=== PATIENT | female | born 1980 | race African-American/Black ===

== ENCOUNTER 2021-04-14 21:57 | Inpatient (IN) | payer OTHER, SELFPAY ==
[~2021-04-14] VITALS: Ht 157.5 cm; Wt 64.9 kg
[2021-04-14 22:00] VITALS: BP_SYST 144
--- NOTE | 2021-04-14 22:00 | NUR ---
Placed in room 08 . Placed on conveyor monitor, blood pressure machine and pulse oximeter. To gown for exam. Side rails up. Report given to LUIS BARFIELD
--- NOTE | 2021-04-14 22:10 | NUR ---
Assumed total care of patient. Patient AAO x4 c/o bilateral lower leg numbness, tingling, and weakness. Patient states she was standing about to take a step when she felt like her legs gave out. Patient was unable to get herself back up. Patient denies lightheadedness, nausea, blurry vision. Patient denies loss of consciousness. Patient denies any medical history. Patient placed on eap consultant, VSS, breathing even and unlabored, symmetrical chest rise and fall, no signs of acute distress noted. Will continue to monitor.
--- NOTE | 2021-04-14 22:20 | NUR ---
# 20 gauge angiocath placed to right forearm. Use of asceptic technique. Opsite placed over site. Blood return noted. Flushed with 10 cc of normal saline. No evidence of infiltration noted. Patient tolerated well.
--- NOTE | 2021-04-14 23:30 | NUR ---
ER Dr. Davis at bedside examining patient.
[2021-04-14] MEDS ORDERED: NACL 0.9% 1,000 ML IV ONE (23:45)
--- NOTE | 2021-04-15 | NUR ---
Lab at bedside drawing blood work
[2021-04-15 00:21] LABS: BASOPHILS # (AUTO) 0.1 K/uL (0.0-0.2); EOSINOPHILS # (AUTO) 0.1 K/uL (0.0-0.4); EOSINOPHILS % (AUTO) 0.9 % (0.0-4.0); HEMATOCRIT 36.7 % (36-48); HEMOGLOBIN 12.2 g/dL (12.0-16.0); LYMPHOCYTES # (AUTO) 1.8 K/uL (1.0-5.5); LYMPHOCYTES % (AUTO) 23.1 % (20.5-51.5); MEAN CORPUSCULAR HEMOGLOBIN 30 pg (27-31); MEAN CORPUSCULAR HGB CONC 33 % (32-36); MEAN CORPUSCULAR VOLUME 89 fL (79.0-98.0); MONOCYTES # (AUTO) 0.6 K/uL (0.0-1.0); MONOCYTES % (AUTO) 8.2 % (1.7-9.3); NEUTROPHILS # (AUTO) 5.2 K/uL (1.8-7.7); NEUTROPHILS % (AUTO) 66.8 % (40.0-70.0); PLATELET COUNT (AUTO) 341 K/uL (130-430); RED CELL DISTRIBUTION WIDTH 15.8 % (9.0-15.0); WHITE BLOOD COUNT (AUTO) 7.8 K/uL (4.8-10.8)
[2021-04-15 00:36] LABS: CALCIUM 7.5 mg/dL (8.4-11.0); CREATININE 0.59 mg/dL (0.55-1.30)
[2021-04-15] MEDS ORDERED: MAGNESIUM SULFATE 50 ML IV ONE (00:45)
[2021-04-15] MEDS ORDERED: KCL 40 mEq in 100 mL (PREMIX) 100 ML IV ONE (00:45)
[2021-04-15] MEDS ORDERED: POTASSIUM CHLORIDE 20 MEQ TAB.PRT.SR PO ONE ×2 (00:45→11:30)
[2021-04-15 00:54] LABS: ALBUMIN 3.6 g/dL (3.4-4.8); THYROID STIMULATING HORMONE 1.69 uIu/mL (0.36-3.74); TOTAL BILIRUBIN 0.6 mg/dL (0.0-1.0)
[2021-04-15 00:56] LABS: POTASSIUM 2.5 mmol/L (3.5-5.1)
[2021-04-15] MEDS ORDERED: KCL 20 mEq in 100 mL (PREMIX) 100 ML IV ONE ×3 (01:15→05:30)
--- NOTE | 2021-04-15 02:20 | NUR ---
Patient ambulated to restroom with assistance to obtain urine sample. Patient returned to [facility], placed on property assessment monitor. Will continue to monitor.
[2021-04-15 02:49] LABS: BILIRUBIN,URINE NEGATIVE (NEGATIVE); BLOOD, URINE NEGATIVE (NEGATIVE); CLARITY/URINE CLEAR (CLEAR); COLOR,URINE YELLOW (YELLOW); GLUCOSE,URINE NEGATIVE (NEGATIVE); KETONES,URINE 2+ (NEGATIVE); LEUKOCYTE ESTERASE ,URINE 1+ (NEGATIVE); NITRITE, URINE NEGATIVE (NEGATIVE); PROTEIN URINE NEGATIVE (NEGATIVE); UROBILINOGEN,URINE 0.2 (0.2-1.0)
[2021-04-15 03:05] LABS: BARBITURATE, URINE NEGATIVE (NEG <=200); BENZODIAZEPINE, URINE NEGATIVE (NEG <=150); CANNABINOID, URINE NEGATIVE (NEG <=50); COCAINE, URINE NEGATIVE (NEG <=150); METHAMPHETAMINES SCREEN,URINE NEGATIVE (NEG <=500); OPIATE, URINE NEGATIVE (NEG <=100); PHENCYCLIDINE SCREEN,URINE NEGATIVE (NEG <=25); UR TRICYCLIC ANTIDEPRESSANTS NEGATIVE (NEG <=300); URINE AMPHETAMINE NEGATIVE (NEG <=500); URINE METHADONE NEGATIVE (NEG <=200); URINE OXYCODONE SCREEN NEGATIVE (NEG <=100); URINE PROPOXYPHENE SCREEN NEGATIVE (NEG <=300)
[2021-04-15 04:10] LABS: BACTERIA,URINE MODERATE /HPF (None Seen); MUCUS,URINE None Seen /LPF (None Seen); RBC,URINE 0-3 /HPF (0-3)
--- NOTE | 2021-04-15 04:17 | NUR ---
Orders received to order repeat Potassium level. Lab notified.
--- NOTE | 2021-04-15 04:21 | NUR ---
Lab at bedside for blood draw.
[2021-04-15] MEDS ORDERED: NITROFURANTOIN MONOHYD/M-CRYST 100 MG CAPSULE (MacroBID) PO ONE ×2 (04:45→05:03)
[2021-04-15 04:46] LABS: CALCIUM 7.3 mg/dL (8.4-11.0); CREATININE 0.6 mg/dL (0.55-1.30); POTASSIUM 3.2 mmol/L (3.5-5.1)
--- NOTE | 2021-04-15 05:05 | NUR ---
Patient medicated per MD orders. Patient tolerated well.
[2021-04-15] MEDS ORDERED: POTASSIUM CHLORIDE 10 MEQ TAB.PRT.SR PO ONE (05:30)
--- NOTE | 2021-04-15 05:56 | NUR ---
Received admit orders from Dr. Corcoran
--- NOTE | 2021-04-15 06:00 | NUR ---
Patient will be admitted to care of Dr. Corcoran. Admitted to TELE unit. Will go to room pending. Complete and up to date summary report printed. SBAR report to be given at bedside with opportunity for questions.
--- NOTE | 2021-04-15 06:01 | NUR ---
Patient's code status is FULL CODE paperwork completed and placed in chart.
--- NOTE | 2021-04-15 06:17 | NUR ---
Patient reports feeling nauseous. Dr. Davis notified, orders received for Zofran 4mg IVP.
[2021-04-15] MEDS ORDERED: ONDANSETRON HCL 4 MG/2 ML VIAL ONE (06:19)
[2021-04-15] MEDS ORDERED: ONDANSETRON HCL 4 MG/2 ML VIAL IVP ONE (06:30)
--- NOTE | 2021-04-15 07:16 | NUR ---
Report given to LUIS Ulrich for contination of care
--- NOTE | 2021-04-15 07:30 | NUR ---
Report received from Izzy SMITH to assume care of patient
[2021-04-15] MEDS: LR 1,000 ML IV SCH ×2 (07:44→15:40)
--- NOTE | 2021-04-15 07:56 | NUR ---
Pt awake, alert and oriented x 3. Very pleasant. No c/o any kind. VSS on pvc monitor. Informed of treatment plan for morning and moving forward. Understanding verbalized. Will continue to monitor closely.
--- NOTE | 2021-04-15 08:44 | NUR ---
BMP to be drawn to re-evaluate patient; awaiting lab.
--- NOTE | 2021-04-15 09:05 | NUR ---
Dr Roth to bedside to assess patient
--- NOTE | 2021-04-15 09:35 | NUR ---
Dr Corcoran to bedside to assess patient
--- NOTE | 2021-04-15 09:48 | NUR ---
[facility]
[2021-04-15 10:01] LABS: ALBUMIN 3.6 g/dL (3.4-4.8); CALCIUM 7.3 mg/dL (8.4-11.0); CREATININE 0.64 mg/dL (0.55-1.30); POTASSIUM 3.1 mmol/L (3.5-5.1); TOTAL BILIRUBIN 0.8 mg/dL (0.0-1.0)
[2021-04-15 10:37] VITALS: BP_SYST 112
--- NOTE | 2021-04-15 10:45 | NUR ---
CARDIOLOGY CONSULT DR KYLE IS AWARE OF THE CONSULT
--- NOTE | 2021-04-15 10:46 | NUR ---
NEPHROLOGY CONSULT THAT AVE IS AWARE OF THE CONSULT FOR LOW K LEVEL.
--- NOTE | 2021-04-15 11:00 | NUR ---
ADMISSION NOTE Pt arrived via gurney to room at 1010am. Pt was assisted from gurney to bed in room by 2 person assist due to vertigo. Pt was oriented to room and nursing routines/procedures. Questions/concerns were answered at this time. Tele unit was applied at this time of admission to floor. Call light within reach.
[2021-04-15 12:00] VITALS: BP_SYST 115
[2021-04-15] MEDS: POTASSIUM CHLORIDE 20 MEQ TAB.PRT.SR PO SCH ×2 (15:40→21:57)
[2021-04-15 16:00] VITALS: BP_SYST 121
--- NOTE | 2021-04-15 18:25 | NUR ---
Note Pt was assisted to restroom at 1130am, pt was dizzy and had vertigo - with RN and FWW. On assistance back to bed, pt was provided with BSC and instructed to call when getting in and OOB to BSC, pt does not call for assistance, gets up independently to use BSC. Pt was checked on q1' and PRN all shift for needs and care. Pt's bed in low position. IV in RAC intact and patent infusing IVF's well. Pt denies any needs all shift. Tele unit attached and intact all shift. Call light within reach. Pt was seen by Dr Dyer this shift and assessment completed.
--- NOTE | 2021-04-15 19:25 | NUR ---
CHANGE OF SHIFT; endorsed by day shift for Hypokalemia. no distress. call light within reach.
[2021-04-15 20:30] VITALS: BP_SYST 149
--- NOTE | 2021-04-15 20:30 | NUR ---
NOTES: pt. sleeping when checked. IVF infusing , on security monitor and shows sinus tach HR 107. awakened, no shortness of breath or any c/o pain. denies any dizziness. still has not eaten dinner, kept tray at bedside. VS checked. SBP pretty high 169/95 and rechecked 149/89. Dr. Corcoran in the nursing stastion and made him aware. call light within reach.
[2021-04-15] MEDS ORDERED: cloNIDine HCL 0.1 MG TABLET PO PRN (21:15)
[2021-04-15] MEDS ORDERED: ACETAMINOPHEN 325 MG TABLET PO PRN (21:15)
[2021-04-16 00:15] VITALS: BP_SYST 151
--- NOTE | 2021-04-16 00:15 | NUR ---
NOTES: pt. checked, leads off. VS rechecked. IVF infusing. needs attended.
[2021-04-16] MEDS: LR 1,000 ML IV SCH ×3 (02:25→21:23)
--- NOTE | 2021-04-16 03:01 | NUR ---
NOTES: pt. sleeping when checked. IV bag changed. no complaints noted. occ. bouts of non productive cough.
--- NOTE | 2021-04-16 06:51 | NUR ---
CLOSING NOTES; pt. already awake, voided and had bm using BSC. IV site slightly swollen, high pressure alarm. will check to insert another IV site. for further care and assistance. no dizziness. call light within reach.
[2021-04-16 08:00] VITALS: BP_SYST 135
[2021-04-16 08:24] LABS: BASOPHILS # (AUTO) 0.1 K/uL (0.0-0.2); EOSINOPHILS # (AUTO) 0.3 K/uL (0.0-0.4); EOSINOPHILS % (AUTO) 3.3 % (0.0-4.0); HEMOGLOBIN 10.5 g/dL (12.0-16.0); LYMPHOCYTES # (AUTO) 3.2 K/uL (1.0-5.5); LYMPHOCYTES % (AUTO) 42.4 % (20.5-51.5); MEAN CORPUSCULAR HEMOGLOBIN 30 pg (27-31); MEAN CORPUSCULAR HGB CONC 33 % (32-36); MEAN CORPUSCULAR VOLUME 90 fL (79.0-98.0); MONOCYTES # (AUTO) 0.7 K/uL (0.0-1.0); NEUTROPHILS # (AUTO) 3.4 K/uL (1.8-7.7); NEUTROPHILS % (AUTO) 44.3 % (40.0-70.0); PLATELET COUNT (AUTO) 277 K/uL (130-430); RED BLOOD CELL COUNT(AUTO) 3.56 MIL/uL (4.2-6.2); WHITE BLOOD COUNT (AUTO) 7.6 K/uL (4.8-10.8)
[2021-04-16 08:40] LABS: CALCIUM 7.2 mg/dL (8.4-11.0); CREATININE 0.53 mg/dL (0.55-1.30); POTASSIUM 3.5 mmol/L (3.5-5.1); TOTAL BILIRUBIN 0.5 mg/dL (0.0-1.0)
[2021-04-16] MEDS: POTASSIUM CHLORIDE 20 MEQ TAB.PRT.SR PO SCH ×3 (09:36→21:22)
[2021-04-16 10:02] LABS: CKMB RELATIVE INDEX 1.8 (0.0-2.9)
--- NOTE | 2021-04-16 10:42 | NUR ---
CONSULTATION PAGED/CALLED Reason for Consultation: [] LOWER LIMB EXTREMITIES Person Who was Notified: [] DR RANDALL Consulting Physician: [] DR RANDALL, P Food Science Professor Specialty: [] NEURO Ordering Physician: [] DR DORADO
--- NOTE | 2021-04-16 11:36 | NUR ---
Nutrition Update Don Scale 18 noted. Pt admitted for hypokalemia, generalized weakness. Diet: regular BMI: 26.2 kg/m2 RD to follow per nutrition care standards.
[2021-04-16 12:00] VITALS: BP_SYST 133
--- NOTE | 2021-04-16 15:46 | NUR ---
AMBULATED PT THIS MORNING, PT VERY WEAK, REQUIRES ASSISTANCE, ABLE TO WALK [address] KYLE AT THE BEDSIDE AND AWARE. ESCORTED PT BACK TO BED. INSTRUCTED PT USE CALL LIGHT IF SHE NEEDS TO GET UP. Addendum: 04/16/21 at 1549 by [place] mattress inspector SHE STATES " MY LEGS FEEL WOBBLY".
[2021-04-16 16:00] VITALS: BP_SYST 128
[2021-04-16 20:00] VITALS: BP_SYST 122; BP_SYST 124
[2021-04-17] VITALS: BP_SYST 123
--- NOTE | 2021-04-17 02:45 | NUR ---
CONSULTATION PAGED REASON FOR CONSULTATION: unprovoked bilateral PE WAS CONSULT CALLED? Y PERSON WHO WAS NOTIFIED: William CONSULTING PHYSICIAN: Dr. Salvador REQUESTING PHYSICIAN: Dr. Ziegler Addendum: 04/17/21 at 0249 by Latrice Santana MT/ ---wrong patient---------
[2021-04-17 04:00] VITALS: BP_SYST 134
--- NOTE | 2021-04-17 07:52 | NUR ---
Assumed care last night. A/O x 4. Denied pain. In no acute distress. Uses bedside commode. Care has been endorsed to AM RN.
--- NOTE | 2021-04-17 08:00 | NUR ---
NOTES 0800- PATIENT WITH WEAKNESS ON LOWER EXTREMITIES, STAED WITH NUMBNESS BOTH FEET, ABLE TO WIGGLE AND MOVE LOWER EXTREMITIES. NEEDS ELECTRICIAN APPRENTICE POWERHOUSE TO STAND UP, WEAK TO AMBULATE. SAFETY CARE PROVIDED TO PATIENT 1200 PER SILAS CAMPOS, PATIENT WAS WEAK TO WALK AFTER MORNING CARE.
[2021-04-17 08:35] LABS: CALCIUM 7.2 mg/dL (8.4-11.0); CREATININE 0.57 mg/dL (0.55-1.30); POTASSIUM 3.3 mmol/L (3.5-5.1); TOTAL BILIRUBIN 0.4 mg/dL (0.0-1.0)
[2021-04-17 08:54] VITALS: BP_SYST 118
[2021-04-17] MEDS: LR 1,000 ML IV SCH ×2 (09:09→18:00)
[2021-04-17] MEDS: POTASSIUM CHLORIDE 20 MEQ TAB.PRT.SR PO SCH ×3 (10:25→20:40)
[2021-04-17 11:13] LABS: CKMB RELATIVE INDEX 1.2 (0.0-2.9); CREATINE KINASE MB 10.1 ng/mL (0-3.6)
[2021-04-17 12:11] VITALS: BP_SYST 135
[2021-04-17] MEDS ORDERED: POTASSIUM CHLORIDE 20 MEQ/PKT PACKET PO ONE (13:45)
[2021-04-17] MEDS ORDERED: MAGNESIUM SULFATE 4 GM in D5W 250 ML IV ONE (13:45)
[2021-04-17] MEDS ORDERED: POTASSIUM CHLORIDE 20 MEQ/PKT PACKET PO SCH ×2 (15:00→21:00)
--- NOTE | 2021-04-17 17:00 | NUR ---
notes 1500- seen by dr aldrich, to change kdur to po qid, Mag rider as ordered. 183- seen by esperanza, for mri tomorrow due to weakness bilateral lower leg.
[2021-04-17 20:46] VITALS: BP_SYST 137
[2021-04-17] MEDS: TEMAZEPAM 15 MG CAPSULE PO PRN (20:49)
--- NOTE | 2021-04-17 21:50 | NUR ---
Pt used call light and asked for help. pt found sitting on floor. pt stated she was transferring from the bsc back to the bed and was unable to support herself so she sat down. pt denied hitting her head or any other body part on the bed. family notified by pt while I was at bedside. pt denied need for me to call family. Md notified. no new orders given just have pt use call light for assistance to bsc. house sup was notified since no charge nurse for shift. pt educated to use call light.
--- NOTE | 2021-04-17 22:10 | NUR ---
Paged Dr. Corcoran s/w Judy
[2021-04-18 00:11] VITALS: BP_SYST 119
[2021-04-18] MEDS: LR 1,000 ML IV SCH ×2 (04:00→16:29)
--- NOTE | 2021-04-18 06:03 | NUR ---
pt found sitting on floor for second time this shift. pt again tried to transfer to bedside commode and sat down due to weakness in legs. call was within reach. pt had been educated to use call light. bed alarm was on. pt assisted back to bed. pt re-educated to call for assistance if she tries to get up to use bedside commode Addendum: 04/18/21 at 0606 by Ty Bartholomew RN md notified. pt denied any pain or injuries.
[2021-04-18 06:06] VITALS: BP_SYST 123
--- NOTE | 2021-04-18 06:07 | NUR ---
Doreen Corcoran s/maris Sanz
--- NOTE | 2021-04-18 06:45 | NUR ---
pt re-educated by house sup not to get out of bed without calling for assistance. pt verbalized understanding of instructions
[2021-04-18 06:58] LABS: BASOPHILS # (AUTO) 0.1 K/uL (0.0-0.2); BASOPHILS % (AUTO) 1.3 % (0.0-2.0); EOSINOPHILS # (AUTO) 0.4 K/uL (0.0-0.4); HEMATOCRIT 33.2 % (36-48); HEMOGLOBIN 10.8 g/dL (12.0-16.0); LYMPHOCYTES # (AUTO) 2.4 K/uL (1.0-5.5); LYMPHOCYTES % (AUTO) 38.1 % (20.5-51.5); MEAN CORPUSCULAR HEMOGLOBIN 30 pg (27-31); MEAN CORPUSCULAR HGB CONC 33 % (32-36); MEAN CORPUSCULAR VOLUME 91 fL (79.0-98.0); MONOCYTES # (AUTO) 0.5 K/uL (0.0-1.0); MONOCYTES % (AUTO) 7.9 % (1.7-9.3); NEUTROPHILS % (AUTO) 46.7 % (40.0-70.0); PLATELET COUNT (AUTO) 249 K/uL (130-430); RED BLOOD CELL COUNT(AUTO) 3.63 MIL/uL (4.2-6.2); RED CELL DISTRIBUTION WIDTH 15.8 % (9.0-15.0); WHITE BLOOD COUNT (AUTO) 6.4 K/uL (4.8-10.8)
[2021-04-18 07:38] LABS: CALCIUM 7.4 mg/dL (8.4-11.0); CREATININE 0.53 mg/dL (0.55-1.30); POTASSIUM 4.8 mmol/L (3.5-5.1); URIC ACID 2.8 mg/dL (2.4-7.0)
[2021-04-18 07:57] VITALS: BP_SYST 133
[2021-04-18 09:09] LABS: PHOSPHORUS 0.9 mg/dL (2.7-4.5)
[2021-04-18] MEDS: POTASSIUM CHLORIDE 20 MEQ TAB.PRT.SR PO SCH ×3 (10:12→20:36)
[2021-04-18] MEDS ORDERED: NS IV ONE (11:15)
[2021-04-18] MEDS ORDERED: NA PHOS IV ONE (11:15)
[2021-04-18 11:29] VITALS: BP_SYST 130
--- NOTE | 2021-04-18 11:30 | NUR ---
TO MRI Pt left floor via wheelchair to MRI in no distress.
[2021-04-18] MEDS ORDERED: NAPH,MB-DB/K PH,MBDB 250 MG TAB PO ONE (13:15)
[2021-04-18] MEDS ORDERED: NA PHOS 30 MM in NS 250 ML IV ONE (13:15)
--- NOTE | 2021-04-18 13:30 | NUR ---
BACK FROM MRI/MD Pt back from MRI in no distress. DR. Corcoran now at bedside.
[2021-04-18 16:20] VITALS: BP_SYST 125
--- NOTE | 2021-04-18 16:31 | NUR ---
TO OR Pt left floor via bed to OR for Lumbar Puncture in no distress.
[2021-04-18 17:20] LABS: FOLATE (FOLIC ACID) 2.3 ng/mL (>3.0)
[2021-04-18] MEDS ORDERED: MORPHINE 2 MG/ML INJ. SYRINGE ONE (17:58)
[2021-04-18] MEDS ORDERED: NALOXONE HCL 0.4 MG/ML AMP (NARCAN) IVP PRN ×2 (18:00)
[2021-04-18] MEDS ORDERED: MORPHINE 2 MG/ML INJ. SYRINGE IVP PRN (18:00)
[2021-04-18] MEDS: NAPH,MB-DB/K PH,MBDB 250 MG TAB PO SCH ×2 (18:00→20:36)
[2021-04-18] MEDS ORDERED: MORPHINE 2 MG/ML INJ. SYRINGE IVP ONE (18:00)
[2021-04-18 18:35] LABS: CSF GLUCOSE 68 mg/dL (40-70); CSF PROTEIN 40 mg/dL (15-45)
[2021-04-18] MEDS ORDERED: ONDANSETRON HCL 4 MG/2 ML VIAL IVP PRN (18:45)
[2021-04-18] MEDS ORDERED: ACETAMINOPHEN 500 MG TABLET PO PRN (18:45)
[2021-04-18 20:26] LABS: CSF RED BLOOD CELL COUNT #1 69 /uL (0-0); CSF WHITE BLOOD CELL COUNT 3 /uL (0-5)
[2021-04-18] MEDS: CHOLECALCIFEROL (VITAMIN D3) 2,000 UNIT TABLET PO SCH (20:37)
[2021-04-18 20:42] VITALS: BP_SYST 129
[2021-04-18] MEDS: MORPHINE 2 MG/ML INJ. SYRINGE IVP PRN (20:44)
[2021-04-18] MEDS: TEMAZEPAM 15 MG CAPSULE PO PRN (23:40)
[2021-04-19 00:09] VITALS: BP_SYST 127
[2021-04-19] MEDS ORDERED: MORPHINE 2 MG/ML INJ. SYRINGE ONE (06:45)
[2021-04-19] MEDS: MORPHINE 2 MG/ML INJ. SYRINGE IVP PRN ×3 (06:48→19:29)
[2021-04-19 08:00] VITALS: BP_SYST 135
[2021-04-19] MEDS: NAPH,MB-DB/K PH,MBDB 250 MG TAB PO SCH ×4 (08:30→20:18)
[2021-04-19 11:07] LABS: CALCIUM 8.3 mg/dL (8.4-11.0); CREATININE 0.42 mg/dL (0.55-1.30); POTASSIUM 4.4 mmol/L (3.5-5.1)
[2021-04-19 11:10] LABS: PHOSPHORUS 2.3 mg/dL (2.7-4.5)
[2021-04-19] MEDS: CHOLECALCIFEROL (VITAMIN D3) 2,000 UNIT TABLET PO SCH (11:24)
[2021-04-19] MEDS: POTASSIUM CHLORIDE 20 MEQ TAB.PRT.SR PO SCH ×4 (11:24→20:18)
[2021-04-19] MEDS: LR 1,000 ML IV SCH (11:26)
--- NOTE | 2021-04-19 11:42 | NUR ---
Dietitian Recommendations Recommend: continue regular diet. Encourage PO intake and document all PO intake. Add Ensure Enlive TID for improved PO intake (Supplement yields 1,050 kcals/day). Please see Nutritional Assessment for details Signed: 04/19/21 at 1143 by Deloris ARRIAGA <Co-Signature Required> Co-Signed: 04/19/21 at [address]
[2021-04-19] MEDS ORDERED: NAPH,MB-DB/K PH,MBDB 250 MG TAB PO ONE (13:45)
[2021-04-19] MEDS ORDERED: CHOLECALCIFEROL (VITAMIN D3) 5,000 UNIT TABLET PO ONE (14:45)
[2021-04-19] MEDS ORDERED: MULTIVITS,CA,MINERALS/IRON/FA 1 TABLET PO ONE (14:45)
[2021-04-19 15:58] VITALS: BP_SYST 155
--- NOTE | 2021-04-19 19:00 | NUR ---
A/OX4,VSS,WEAKNESS AND NUMBNESS ON BLE.OFFERED BEDPAN FOR URINATION PHOSPHOROUS 2.3 PER TODAY LAB.CONTINUE NEUTROPHOS PO AND GIVE EXTRA DOSE NEUTRA PHOS 500MG PO X1 PER DR ORDER.C/O PAIN IN KNEES,GIVE MORPHINE 2 MG IV PRN ORDER FOR PAIN,NEEDS ATTENDED,HOURLY ROUNDS MADE,SAFETY MAINTAINED. CONTINUE TO MONITOR PT.REPORT ENDORSED TO SOCK LINING EXAMINER NURSE.
--- NOTE | 2021-04-19 20:00 | NUR ---
Pt in bed resting. pt aox4 with some forgetfulness. pt c/o numbness and tingling in ble and Indra hands. pt educated not to get out of bed. pt is to use a bed flowers. pt is unable to support her own wait at this time. call light within reach. bed alarm on. bed rails up x3. Will continue to monitor.
[2021-04-19 20:31] VITALS: BP_SYST 130
--- NOTE | 2021-04-19 21:24 | NUR ---
Paged Dr. Corcoran s/w Ondina
--- NOTE | 2021-04-19 21:30 | NUR ---
Pt requested different sleeping aid from prior night. pt co resteriol did not work for her. Dr. Nilo raphael and new order of Ambien 10mg. received. Pt stated she has taken ambien in the past and it has worked for her.
[2021-04-19] MEDS: ZOLPIDEM TARTRATE 5 MG TABLET PO PRN (22:13)
[2021-04-20 00:59] VITALS: BP_SYST 143
--- NOTE | 2021-04-20 03:10 | NUR ---
Pt used call light for assistance. metal wire technician went into room to assist pt. Pt sitting on edge of bed between side rails. metal wire technician attempted to shift pt back to center of bed and wait for nurse to assist her. Pt unable to support herself and slipped down onto the floor. Pt was assisted to down to the floor by court monitor. Pt did not hit her head or c/o of any pain. Pt helped back into bed. Pt re-educated to use call light and not attempt to get out of bed. Bed alarm was on during last patient round. Bed alarm had been turned off prior to court monitor going into room. Pt denied turning bed alarm off.
[2021-04-20 03:30] VITALS: BP_SYST 135
[2021-04-20 07:05] LABS: BASOPHILS # (AUTO) 0.1 K/uL (0.0-0.2); BASOPHILS % (AUTO) 0.9 % (0.0-2.0); EOSINOPHILS # (AUTO) 0.2 K/uL (0.0-0.4); EOSINOPHILS % (AUTO) 2.1 % (0.0-4.0); HEMATOCRIT 37.1 % (36-48); HEMOGLOBIN 12.1 g/dL (12.0-16.0); LYMPHOCYTES # (AUTO) 2.2 K/uL (1.0-5.5); LYMPHOCYTES % (AUTO) 22.9 % (20.5-51.5); MEAN CORPUSCULAR HEMOGLOBIN 30 pg (27-31); MEAN CORPUSCULAR HGB CONC 33 % (32-36); MEAN CORPUSCULAR VOLUME 92 fL (79.0-98.0); MONOCYTES # (AUTO) 0.4 K/uL (0.0-1.0); MONOCYTES % (AUTO) 4.2 % (1.7-9.3); NEUTROPHILS # (AUTO) 6.7 K/uL (1.8-7.7); NEUTROPHILS % (AUTO) 69.9 % (40.0-70.0); PLATELET COUNT (AUTO) 202 K/uL (130-430); RED BLOOD CELL COUNT(AUTO) 4.01 MIL/uL (4.2-6.2); WHITE BLOOD COUNT (AUTO) 9.6 K/uL (4.8-10.8)
--- NOTE | 2021-04-20 07:23 | NUR ---
ENDORSE CARE TO DAY RN. RN MADE AWARE OF PT FALLING AND PT BEING FORGETFUL. LAST NIGHT PT FELL FOR 3RD TIME THIS WEEK. RN DAY RN MADE AWARE OF PT UNABLE TO SUPPORT HER OWN WEIGHT AND SHOULD NOT BE ALLOWED TO SIT ON THE EDGE OF BED.
[2021-04-20 08:00] VITALS: BP_SYST 133
[2021-04-20] MEDS: NAPH,MB-DB/K PH,MBDB 250 MG TAB PO SCH ×4 (08:30→21:44)
[2021-04-20] MEDS ORDERED: CHOLECALCIFEROL (VITAMIN D3) 5,000 UNIT TABLET PO SCH (09:00)
[2021-04-20] MEDS: POTASSIUM CHLORIDE 20 MEQ TAB.PRT.SR PO SCH ×4 (09:09→21:44)
[2021-04-20] MEDS: MULTIVITS,CA,MINERALS/IRON/FA 1 TABLET PO SCH (09:09)
[2021-04-20 12:25] VITALS: BP_SYST 138
[2021-04-20 12:34] LABS: ALBUMIN 3.6 g/dL (3.4-4.8); CALCIUM 8.4 mg/dL (8.4-11.0); CREATININE 0.49 mg/dL (0.55-1.30); PHOSPHORUS 3.4 mg/dL (2.7-4.5); POTASSIUM 4.3 mmol/L (3.5-5.1); TOTAL BILIRUBIN 0.4 mg/dL (0.0-1.0)
[2021-04-20 16:00] VITALS: BP_SYST 135
[2021-04-20] MEDS: CHOLECALCIFEROL (VITAMIN D3) 5,000 UNIT TABLET PO SCH ×2 (16:15→21:44)
[2021-04-20 20:00] VITALS: BP_SYST 129
--- NOTE | 2021-04-20 21:05 | NUR ---
SOCRATES ROCHA I SPOKE WITH GAGANDEEP MASTERS
[2021-04-20] MEDS ORDERED: DIPHENHYDRAMINE HCL 50 MG CAPSULE PO ONE (21:15)
[2021-04-21 01:33] VITALS: BP_SYST 106
--- NOTE | 2021-04-21 06:58 | NUR ---
PT REMAINED STABLE THROUGHOUT THE NIGHT, ATTENDED TO ALL NEEDS MAKE COMFORTABLE. ATTEMPTED TO USE BEDSIDE COMMODE WITH OTHER NURSE ASSISTANCE, BUT PT WAS UNABLE TO BEAR WEIGHT ON HER LOWER EXTREMITIES WHICH HE CONTINUED PLACING HER ON BEDPAN FOR BATHROOM USE. PT SEEMS UNCOMFORTABLE BUT PROVIDED REASSURANCE THAT WE ARE HERE FOR HER. ALSO MAIN COMPLAINT WAS NUMBESS TO HER LOWER EXTREMITIES. PT WAS ABLE TO WIGGLE TOES, NO EDEMA PRESENT, SKIN WARM AND PULSES PALPABLE/STRONG. HAS NO QUESTIONS OR NEEDS AT THE MOMENT, IN BED RESTING QUIETLY.
--- NOTE | 2021-04-21 07:30 | NUR ---
Received report from shift supervisor rn nurse and pt is in bed resting with no s/s of distress. A&Ox4. Skin intact. VSS. No chest pain and no sob. Denies n/v. Pt states she cannot ambulate at the moment due to feeling numbing sensation in bilateral lower extremities. Pt can still feel pain and tactile sensation in bilateral lower extremities but does feel numbness and weakness. Bedside commode at bedside. Pt c/o not being able to sleep. Bed in lowest position and call light within reach.
--- NOTE | 2021-04-21 08:30 | NUR ---
Checked on pt and pt is in bed resting comfortablly with no s/s of distress. Pt has her breakfast tray at bedside and is reachable. Call light at bedside as well and explained pt to use call light if pt needs anything due to risk of falling. Room clear of clutter and floor dry. ULTRASOUND COORDINATOR made aware of pt fall risk. Bed alarm on. Pt given fresh water at bedside.
--- NOTE | 2021-04-21 09:30 | NUR ---
Pt in bed resting with no s/s of distress. Vitals stable but HR is slightly elevated at 105. Pt stated "I feel very anxious and have not slept, can I please have something to relax my anxiety and sleep so I can rest?" Notified pt that I will check if she has any PRN medications for anxiety and to help her get some rest. Bed in lowest position and call light within reach. Bed alarm on. Room clear of clutter. Bedside commode at bedside.
[2021-04-21] MEDS: CHOLECALCIFEROL (VITAMIN D3) 5,000 UNIT TABLET PO SCH ×3 (09:48→21:03)
[2021-04-21] MEDS: NAPH,MB-DB/K PH,MBDB 250 MG TAB PO SCH ×4 (09:48→21:03)
[2021-04-21] MEDS: POTASSIUM CHLORIDE 20 MEQ TAB.PRT.SR PO SCH ×4 (09:48→21:04)
[2021-04-21] MEDS: MULTIVITS,CA,MINERALS/IRON/FA 1 TABLET PO SCH (09:48)
[2021-04-21] MEDS: ZOLPIDEM TARTRATE 5 MG TABLET PO PRN (09:54)
--- NOTE | 2021-04-21 10:33 | NUR ---
All scheduled medications given at this time. Ambien PRN was also given so pt can rest and sleep. VSS.
--- NOTE | 2021-04-21 11:00 | NUR ---
Physical Therapist at bedside with pt.
[2021-04-21 11:26] VITALS: BP_SYST 141
--- NOTE | 2021-04-21 11:32 | NUR ---
Went to assess pt and pt was on the floor sitting down. Pt stated " I tried to use the bathroom but was not able to walk to bedside commode". Pt stated she did not hit her head. Skin intact. Pt states she has no pain. A&Ox4. Educated pt on the importance of using a call light and next time if she needs to use the bathroom then to press the call light so she can have assistance. Charge nurse aware.
--- NOTE | 2021-04-21 12:00 | NUR ---
Assessed pt and pt is A&Ox4. Made sure call light is within reach and bed alarm still on. Educated pt on the importance of using a call light and to not get out of bed without assistance. Pt stated "I am aware and I did not fall I just sat down you guys are being dramatic.". I still educated pt the importance of using a call light and the need to wait for assistance. HR is at 117 and all other vitals stable. Pt stated "I still feel anxious and just want to rest." Dr. Corcoran made aware. Pupils PERRLA. All neuro checks within normal limits. Charge nurse aware of pt being a fall risk do to having to previous falls during her hospital stay.
--- NOTE | 2021-04-21 12:37 | NUR ---
Went to check on pt and pt is A&Ox4. Notified pt that bedside commode will be removed due to her not being able to bear her own weight and having a hx of 4 falls during her hospital stay. Moving forward on my shift pt will use bedpan due to being a high risk of falling. Charge nurse aware and Dr. Corcoran aware. Re-educated pt on the use of call light and to not climb out of bed without assistance.
--- NOTE | 2021-04-21 12:49 | NUR ---
Lunch tray given at bedside. Pt currently talking on her cellphone. A&Ox4. Pupils PERRLA. VSS. HR slightly elevated at 103.
--- NOTE | 2021-04-21 13:25 | NUR ---
Scheduled medications have been given to pt at this time. Pt has no c/o. Watching tv with no s/s of distress. A&Ox4. Lunch tray at bedside pt still eating her food. Room cleared of clutter. Call light within reach and bed is in lowest position.
--- NOTE | 2021-04-21 13:35 | NUR ---
Pt tried to get out of bed again without assistance and without using the call light. ENVIRONMENTAL SAMPLING TECHNICIAN and myself went to pt and placed her in bed with call light within reach and bed in lowest position and bed alarm on. Re-inforced pt the use of call light and that she is a high risk for a fall. This will be the 5th time her trying to climb out of bed and has fell 4 times previously. Pt stated "I just want to use the bathroom". And i let pt know moving forward she is to use a bedpan and to not climb out of bed again. Charge nurse aware. Dr. Corcoran here at bedside and recommendation for a sitter was mentioned.
--- NOTE | 2021-04-21 13:42 | NUR ---
CONSULTATION PAGED REASON FOR CONSULTATION:DEPRESSION WAS CONSULT CALED?Y PERSON WHO WAS NOTIFIED:ASH CONSULTING PHYSICIAN:RICH LEHMAN TEST CELL TECHNICIAN SPECIALTY:PSYCHE TEST CELL TECHNICIAN PHONE [phone]: REQUESTING PHYSICIAN:JOSE MARSHALL
--- NOTE | 2021-04-21 14:05 | NUR ---
Pt changed to room 132A . A sitter will be present due to pt having high hx of falls. Dr. Corcoran made aware.
[2021-04-21] MEDS: MORPHINE 2 MG/ML INJ. SYRINGE IVP PRN (14:59)
--- NOTE | 2021-04-21 15:17 | NUR ---
PHYSICAL THERAPY CO-SIGN The Physical Therapy Progress Notes documented by Obstetrical Anesthesiologist have been reviewed. Reviewed/Co-Signed by: Chuck Cintron Documentation Done by: FLIP SANTANA PTA Addendum: 04/21/21 at 1517 by Chuck Cintron PT Amended: Links added.
[2021-04-21 15:52] VITALS: BP_SYST 144
[2021-04-21] MEDS ORDERED: THIAMINE HCL 100 MG in NS 50 ML IV ONE (16:00)
--- NOTE | 2021-04-21 16:38 | NUR ---
Assessed pt and pt is in bed watching tv. Sitter present at bedside to make sure pt does not try to climb out of bed again. All scheduled medications have been given. Pt is A&Ox4. No s/s of distress. Call light within reach and bed in lowest position. VSS.
--- NOTE | 2021-04-21 18:56 | NUR ---
Pt in bed watching tv with sitter at bedside. A&Ox4. No s/s of distress. Call light within reach and bed is in lowest position. Pt states she does not have an appetite and refuses to eat dinner. States she will eat breakfast in the morning. Skin intact. All scheduled medications have been given at this time. VSS.
[2021-04-21 18:57] VITALS: BP_SYST 136
--- NOTE | 2021-04-21 19:30 | NUR ---
rounds Dr. Ny (neuro) rounds.
--- NOTE | 2021-04-21 20:10 | NUR ---
Pt's visiting at bedside.
[2021-04-21 20:30] VITALS: BP_SYST 132
--- NOTE | 2021-04-21 22:10 | NUR ---
Rounds/Safety/Bedpan Pt's bed alarmed as this RN helping pt's roommate. Pt tried to get out of bed to go to the bathroom. Reminded pt to call for assistance. Pt states "I didn't want to bother." Handed pt bedpan and pt voided clear, yellow urine. Bed low, locked, siderails up x3, alarm on and sitter at beside. To monitor.
[2021-04-22] VITALS: BP_SYST 127
--- NOTE | 2021-04-22 00:15 | NUR ---
Pt sleeping comfortably, no s/s distress noted. Sitter at bedside. Safety/fall precautions in place. To monitor.
--- NOTE | 2021-04-22 03:13 | NUR ---
Pt awake, no s/s distress, no c/o discomfort. Bedpan request, pt voided. No BM. Sitter at bedside at all times. Safety maintained. Bed low, locked, siderails up x3, alarm on. To monitor.
--- NOTE | 2021-04-22 06:00 | NUR ---
Closing notes Pt alert, awake, no s/s distress noted. Pt talking on her cellphone. Sitter at bedside at all times. Encouraged pt to call for assistance out of bed. Pt verbalized understanding. Bed low, locked, siderails up x3, alarm on. Call light within reach. To endorse to AM nurse.
--- NOTE | 2021-04-22 07:30 | NUR ---
Routine Patient stable at this time with sitter at bedside.
[2021-04-22 08:05] VITALS: BP_SYST 126
[2021-04-22] MEDS: CHOLECALCIFEROL (VITAMIN D3) 5,000 UNIT TABLET PO SCH ×3 (08:25→20:38)
[2021-04-22] MEDS: MULTIVITS,CA,MINERALS/IRON/FA 1 TABLET PO SCH (08:25)
[2021-04-22] MEDS: THIAMINE HCL 100 MG TABLET PO SCH (08:25)
[2021-04-22] MEDS: POTASSIUM CHLORIDE 20 MEQ TAB.PRT.SR PO SCH ×4 (08:25→20:37)
[2021-04-22] MEDS: NAPH,MB-DB/K PH,MBDB 250 MG TAB PO SCH ×4 (08:25→20:38)
--- NOTE | 2021-04-22 08:25 | NUR ---
Routine Scheduled medications given per order. Patient stable; resting comfortably in bed at this time.
--- NOTE | 2021-04-22 08:35 | NUR ---
Patient stablel; resting comfortably in bed with Dr. Roth and sitter at bedside.
--- NOTE | 2021-04-22 10:25 | NUR ---
Patient stable; sitting on side of bed with PT at bedside.
--- NOTE | 2021-04-22 11:30 | NUR ---
Patient resting comfortably in bed with no distress noted and no complaint of pain at this time. Patient stable.
[2021-04-22 12:35] VITALS: BP_SYST 136
--- NOTE | 2021-04-22 12:41 | NUR ---
PHYSICAL THERAPY CO-SIGN The Physical Therapy Progress Notes documented by System Technologist have been reviewed. Reviewed/Co-Signed by: Chuck Cintron Documentation Done by: FLIP SANTANA PTA Addendum: 04/22/21 at 1242 by Chuck Cintron PT Amended: Links added.
--- NOTE | 2021-04-22 13:04 | NUR ---
Scheduled po medications given per order. Patient stable at this time.
--- NOTE | 2021-04-22 13:50 | NUR ---
Patient stable; resting comfortably in bed with Dr. Corcoran at bedside.
--- NOTE | 2021-04-22 14:45 | NUR ---
Scheduled medication given per order. Patient medicated for 7/10 pain in both legs. Patient stable at this time.
[2021-04-22] MEDS: MORPHINE 2 MG/ML INJ. SYRINGE IVP PRN (14:46)
[2021-04-22] MEDS ORDERED: MAGNESIUM SULFATE 50 ML IV ONE (15:30)
[2021-04-22 16:00] VITALS: BP_SYST 112
--- NOTE | 2021-04-22 17:40 | NUR ---
Scheduled po and IV medication given per order. Patient stable at this time.
--- NOTE | 2021-04-22 18:50 | NUR ---
Patient stable with Dr. Caroline Ny at bedside; stable throughout shift.
--- NOTE | 2021-04-22 19:30 | NUR ---
NOTES PATIENT IN BED, VITALS STABLE, NO COMPLAINTS AT THIS TIME. ASSESSMENT DONE AND DOCUMENTED. SEE FLOWSHEET. NEEDS ATTENDED TO. WILL CONTINUE TO MONITOR.
[2021-04-22 20:00] VITALS: BP_SYST 119
[2021-04-22] MEDS: MAGNESIUM OXIDE 400 MG TABLET PO SCH (20:37)
[2021-04-22] MEDS: ZOLPIDEM TARTRATE 5 MG TABLET PO PRN (23:05)
[2021-04-23] VITALS: BP_SYST 122
--- NOTE | 2021-04-23 00:13 | NUR ---
PATIENT RESTING: Patient resting quietly. No acute distress noted. Vital signs within normal range.
--- NOTE | 2021-04-23 06:55 | NUR ---
CLOSING NOTES PATIENT AWAKE, RESTING COMFORTABLY AT THIS TIME. ALL NEEDS ATTENDED TO.SAFETY MEASURES MAINTAINED. CALL LIGHT PLACED WITHIN REACH.
[2021-04-23 08:00] VITALS: BP_SYST 133
--- NOTE | 2021-04-23 08:00 | NUR ---
Morning Notes: Pt is A/Ox 4, resting in bed. No s/s of respiratory or cardiac distress. IV site is clean, dry and intact, SL. Fall and safety precautions in place, call light within reach, will continue to monitor.
[2021-04-23] MEDS: THIAMINE HCL 100 MG TABLET PO SCH (08:51)
[2021-04-23] MEDS: NAPH,MB-DB/K PH,MBDB 250 MG TAB PO SCH ×2 (08:51→13:51)
[2021-04-23] MEDS: MULTIVITS,CA,MINERALS/IRON/FA 1 TABLET PO SCH (08:51)
[2021-04-23] MEDS: CHOLECALCIFEROL (VITAMIN D3) 5,000 UNIT TABLET PO SCH ×2 (08:52→15:17)
[2021-04-23] MEDS: POTASSIUM CHLORIDE 20 MEQ TAB.PRT.SR PO SCH ×2 (08:52→13:51)
[2021-04-23] MEDS: MAGNESIUM OXIDE 400 MG TABLET PO SCH (08:53)
[2021-04-23 12:00] VITALS: BP_SYST 138
[2021-04-23 14:16] LABS: BASOPHILS # (AUTO) 0.1 K/uL (0.0-0.2); BASOPHILS % (AUTO) 1.2 % (0.0-2.0); EOSINOPHILS # (AUTO) 0.3 K/uL (0.0-0.4); EOSINOPHILS % (AUTO) 3.7 % (0.0-4.0); HEMATOCRIT 34.7 % (36-48); HEMOGLOBIN 11.3 g/dL (12.0-16.0); LYMPHOCYTES # (AUTO) 2.1 K/uL (1.0-5.5); LYMPHOCYTES % (AUTO) 30.2 % (20.5-51.5); MEAN CORPUSCULAR HEMOGLOBIN 30 pg (27-31); MEAN CORPUSCULAR HGB CONC 33 % (32-36); MEAN CORPUSCULAR VOLUME 91 fL (79.0-98.0); MONOCYTES # (AUTO) 0.8 K/uL (0.0-1.0); MONOCYTES % (AUTO) 12.1 % (1.7-9.3); NEUTROPHILS # (AUTO) 3.7 K/uL (1.8-7.7); NEUTROPHILS % (AUTO) 52.8 % (40.0-70.0); PLATELET COUNT (AUTO) 312 K/uL (130-430); RED BLOOD CELL COUNT(AUTO) 3.81 MIL/uL (4.2-6.2); RED CELL DISTRIBUTION WIDTH 16.2 % (9.0-15.0); WHITE BLOOD COUNT (AUTO) 6.9 K/uL (4.8-10.8)
[2021-04-23 14:28] LABS: ALBUMIN 3.5 g/dL (3.4-4.8); CALCIUM 9.7 mg/dL (8.4-11.0); CREATININE 0.5 mg/dL (0.55-1.30); POTASSIUM 4.7 mmol/L (3.5-5.1); TOTAL BILIRUBIN 0.2 mg/dL (0.0-1.0)
[2021-04-23] MEDS ORDERED: MAGN400T10 PO (14:46)
[2021-04-23] MEDS ORDERED: MULT-1145 PO (14:46)
[2021-04-23] MEDS ORDERED: Thiamine Hcl PO (14:46)
[2021-04-23] MEDS ORDERED: CHOL500013 PO (14:46)
[2021-04-23 14:49] LABS: ERYTHROCYTE SEDIMENTATION RATE 42 MM/HR (0-20)
[2021-04-23] MEDS ORDERED: SODIUM BICARBONATE 650 MG TABLET PO SCH (15:00)
--- NOTE | 2021-04-23 15:18 | NUR ---
CM: Faxed homehealth referral to [facility], fax # [phone] tel [phone] Corcoran, the pt is to dc today and ok to arrange [facility] to see pt by Sunday. Informed pt that to get auth jania Laura on Sunday, the office is closed on weekend. Addendum: 04/24/21 at 1306 by Salazar Mckeon RN late entry: per Venkatesh/[facility]< will get auth on Sunday and will call Lisa or Annika back with update. Needs auth from [facility] for HH/PT and FWW. Addendum: 04/24/21 at 1339 by Salazar Mckeon RN Wm/Sukhjinder Seymour/[facility]: re HH/PT and FWW auth. She said will review for authorization on Sunday. [place] faxed the clinicals to fax# [phone], tel [phone]. Dawn aware that [facility] accepted and will call [facility] for auth. DME: to use [facility]. /Venkatesh/[facility] made aware.
[2021-04-23 16:00] VITALS: BP_SYST 133
[2021-04-23 17:07] VITALS: BP_SYST 133
--- NOTE | 2021-04-25 12:07 | NUR ---
PHYSICAL THERAPY CO-SIGN The Physical Therapy Progress Notes documented by Industrial Safety And Health Specialist have been reviewed. Reviewed/Co-Signed by: Chuck Cintron Documentation Done by: RALPH LIRA PTA Addendum: 04/25/21 at 1207 by Chuck Cintron PT Amended: Links added.
== END 2021-04-23 19:30 | disposition home health service (06) | DRG 92 ==
LOC: SED 21:57 → STU 04-15 05:56 → SMU 04-17 17:02
PROVIDERS: ADMIT Internal Medicine; ATTEND Internal Medicine
DX: G72.3 Periodic paralysis (principal); N39.0 Urinary tract infection, site not specified; G82.20 Paraplegia, unspecified; N25.81 Secondary hyperparathyroidism of renal origin; G62.9 Polyneuropathy, unspecified; Z20.822 Contact with and (suspected) exposure to COVID-19; G72.9 Myopathy, unspecified; E83.39 Other disorders of phosphorus metabolism; F43.23 Adjustment disorder with mixed anxiety and depressed mood; Z87.891 Personal history of nicotine dependence
CPT/HCPCS: 36415; 70551; 72142; 72146; 72148; 76770; 80048; 80053; 80307; 81000; 82085; 82306; 82533; 82550; 82553; 82607; 82746; 82947; 83735; 83970; 84100; 84157; 84439; 84443; 84484; 84550; 84702; 85025; 85048; 85651-TC; 86038; 86592; 87086; 89051-TC; 93005; 96365; 96366; 96368; 97110-GP; 97116-GP; 97530-GP; 99285; G0378; J2270; J2405; J3411; J3475; J3480; J7050; J7060; Q0163

== ENCOUNTER 2021-05-02 08:10 | Inpatient (IN) | payer OTHER, SELFPAY ==
[~2021-05-02] VITALS: Ht 157.5 cm; Wt 65.8 kg
[2021-05-02 08:10] VITALS: BP_SYST 118
[~2021-05-02 08:10] MED LIST: CHOL500013 PO; MAGN400T10 PO; MULT-1145 PO; Thiamine Hcl PO
[2021-05-02] MEDS ORDERED: IBUPROFEN 800 MG TABLET PO ONE (08:30)
[2021-05-02 08:57] LABS: BASOPHILS # (AUTO) 0.1 K/uL (0.0-0.2); BASOPHILS % (AUTO) 0.9 % (0.0-2.0); EOSINOPHILS # (AUTO) 0.1 K/uL (0.0-0.4); EOSINOPHILS % (AUTO) 1.2 % (0.0-4.0); HEMATOCRIT 31.6 % (36-48); HEMOGLOBIN 10.6 g/dL (12.0-16.0); LYMPHOCYTES # (AUTO) 1.2 K/uL (1.0-5.5); LYMPHOCYTES % (AUTO) 19.5 % (20.5-51.5); MEAN CORPUSCULAR HEMOGLOBIN 29 pg (27-31); MEAN CORPUSCULAR HGB CONC 34 % (32-36); MEAN CORPUSCULAR VOLUME 88 fL (79.0-98.0); MONOCYTES # (AUTO) 0.4 K/uL (0.0-1.0); NEUTROPHILS # (AUTO) 4.5 K/uL (1.8-7.7); NEUTROPHILS % (AUTO) 71.4 % (40.0-70.0); PLATELET COUNT (AUTO) 296 K/uL (130-430); RED BLOOD CELL COUNT(AUTO) 3.61 MIL/uL (4.2-6.2); RED CELL DISTRIBUTION WIDTH 15.4 % (9.0-15.0); WHITE BLOOD COUNT (AUTO) 6.4 K/uL (4.8-10.8)
[2021-05-02] MEDS ORDERED: NACL 0.9% 1,000 ML IV ONE (09:00)
[2021-05-02 09:02] LABS: ANION GAP 23 (5-15); CALCIUM 9.1 mg/dL (8.4-11.0); CHLORIDE 101 mmol/L (98-107); CREATININE 0.63 mg/dL (0.55-1.30); GLUCOSE 117 mg/dL (70-99); SODIUM SERUM 138 mmol/L (136-145); UREA NITROGEN, BLOOD 8 mg/dL (8-21)
[2021-05-02 09:06] LABS: PROTHROMBIN TIME 10.6 SECS (9.5-12.5)
[2021-05-02 09:11] LABS: ALANINE AMINOTRANSFERASE 54 U/L (12-78); ALBUMIN 3.8 g/dL (3.4-4.8); ASPARTATE AMINOTRANSFERASE 70 U/L (10-37); TOTAL BILIRUBIN 0.6 mg/dL (0.0-1.0)
[2021-05-02 09:18] LABS: POTASSIUM 2.7 mmol/L (3.5-5.1)
[2021-05-02 09:19] LABS: C-REACTIVE PROTEIN QUANT < 0.2 mg/dL (0-0.5)
[2021-05-02] MEDS ORDERED: ONDANSETRON HCL 4 MG/2 ML VIAL IVP ONE (09:30)
[2021-05-02] MEDS ORDERED: POTASSIUM CHLORIDE 20 MEQ/PKT PACKET PO ONE (09:30)
[2021-05-02] MEDS ORDERED: LR 1,000 ML IV ONE (11:15)
[2021-05-02] MEDS ORDERED: LR 500 ML IV SCH (11:15)
[2021-05-02] MEDS ORDERED: HYDROcodone/ACETAMIN 10-325 MG TAB PO ONE (12:45)
[2021-05-02 13:16] VITALS: BP_SYST 135
[2021-05-02] MEDS ORDERED: POTASSIUM CHLORIDE 20 MEQ TAB.PRT.SR PO ONE (13:45)
[2021-05-02 15:17] LABS: CALCIUM 8.7 mg/dL (8.4-11.0); CREATININE 0.63 mg/dL (0.55-1.30)
[2021-05-02 15:24] LABS: POTASSIUM 2.7 mmol/L (3.5-5.1)
[2021-05-02] MEDS: LR 1,000 ML IV SCH ×2 (16:04→22:48)
[2021-05-02] MEDS ORDERED: FOLIC ACID 5 MG/ML VIAL IV ONE (16:30)
[2021-05-02 16:36] LABS: ACETAMINOPHEN 4 ug/mL (1-30)
[2021-05-02] MEDS ORDERED: THIAMINE HCL 100 MG in NS 50 ML IV ONE (17:00)
[2021-05-02] MEDS: FOLIC ACID 1 MG TABLET PO SCH (17:29)
[2021-05-02] MEDS ORDERED: MAGNESIUM SULFATE 4 GM in D5W 250 ML IV ONE (17:30)
[2021-05-02] MEDS: SPIRONOLACTONE 50 MG TABLET (ALDACTONE) PO SCH (20:50)
[2021-05-02] MEDS: POTASSIUM CHLORIDE 20 MEQ TAB.PRT.SR PO SCH (20:51)
[2021-05-02 20:55] LABS: CKMB RELATIVE INDEX 4.6 (0.0-2.9); CREATINE KINASE MB 12.4 ng/mL (0-3.6)
[2021-05-03] VITALS (7 sets, daily range): BP systolic 117–135
[2021-05-03] MEDS ORDERED: traMADol HCL HCL 50 MG TABLET (ULTRAM) PO ONE (05:45)
[2021-05-03] MEDS ORDERED: ACETAMINOPHEN 325 MG TABLET PO ONE (05:45)
[2021-05-03 06:15] LABS: BASOPHILS # (AUTO) 0.1 K/uL (0.0-0.2); BASOPHILS % (AUTO) 1.1 % (0.0-2.0); EOSINOPHILS # (AUTO) 0.3 K/uL (0.0-0.4); EOSINOPHILS % (AUTO) 4.8 % (0.0-4.0); HEMATOCRIT 29.5 % (36-48); HEMOGLOBIN 9.8 g/dL (12.0-16.0); LYMPHOCYTES # (AUTO) 1.8 K/uL (1.0-5.5); LYMPHOCYTES % (AUTO) 27.7 % (20.5-51.5); MEAN CORPUSCULAR HEMOGLOBIN 29 pg (27-31); MEAN CORPUSCULAR HGB CONC 33 % (32-36); MEAN CORPUSCULAR VOLUME 88 fL (79.0-98.0); MONOCYTES # (AUTO) 0.5 K/uL (0.0-1.0); MONOCYTES % (AUTO) 7.8 % (1.7-9.3); NEUTROPHILS # (AUTO) 3.7 K/uL (1.8-7.7); NEUTROPHILS % (AUTO) 58.6 % (40.0-70.0); PLATELET COUNT (AUTO) 219 K/uL (130-430); RED BLOOD CELL COUNT(AUTO) 3.38 MIL/uL (4.2-6.2); RED CELL DISTRIBUTION WIDTH 15.5 % (9.0-15.0); WHITE BLOOD COUNT (AUTO) 6.4 K/uL (4.8-10.8)
[2021-05-03 06:28] LABS: TOTAL IRON BIND. CAPACITY 217 ug/dL (250-450)
[2021-05-03 06:36] LABS: CALCIUM 8.3 mg/dL (8.4-11.0); CREATININE 0.38 mg/dL (0.55-1.30); POTASSIUM 3.2 mmol/L (3.5-5.1); TOTAL BILIRUBIN 0.6 mg/dL (0.0-1.0)
[2021-05-03 07:23] LABS: PHOSPHORUS 0.6 mg/dL (2.7-4.5)
[2021-05-03] MEDS: SPIRONOLACTONE 50 MG TABLET (ALDACTONE) PO SCH (08:40)
[2021-05-03] MEDS: POTASSIUM CHLORIDE 20 MEQ TAB.PRT.SR PO SCH ×3 (08:40→21:24)
[2021-05-03] MEDS: THIAMINE HCL 100 MG TABLET PO SCH (08:40)
[2021-05-03] MEDS: LR 1,000 ML IV SCH ×2 (08:41→14:45)
[2021-05-03] MEDS ORDERED: CHOLECALCIFEROL (VITAMIN D3) 5,000 UNIT TABLET PO SCH (09:00)
[2021-05-03] MEDS ORDERED: MULTIVITS,CA,MINERALS/IRON/FA 1 TABLET PO SCH (09:00)
[2021-05-03 11:18] LABS: BILIRUBIN,URINE 2+ (NEGATIVE); BLOOD, URINE 1+ (NEGATIVE); CLARITY/URINE TURBID (CLEAR); GLUCOSE,URINE NEGATIVE (NEGATIVE); KETONES,URINE 2+ (NEGATIVE); LEUKOCYTE ESTERASE ,URINE 2+ (NEGATIVE); NITRITE, URINE NEGATIVE (NEGATIVE); PROTEIN URINE TRACE (NEGATIVE); UROBILINOGEN,URINE 0.2 (0.2-1.0)
[2021-05-03 11:19] LABS: COLOR,URINE AMBER (YELLOW)
[2021-05-03 11:25] LABS: BACTERIA,URINE MANY /HPF (None Seen)
[2021-05-03] MEDS: traMADol HCL HCL 50 MG TABLET (ULTRAM) PO PRN ×3 (12:05→21:24)
[2021-05-03] MEDS: ACETAMINOPHEN 325 MG TABLET PO PRN ×2 (12:05→16:34)
[2021-05-03] MEDS ORDERED: K PHOS 30 MM in NS 250 ML IV ONE (14:15)
[2021-05-03] MEDS ORDERED: NAPH,MB-DB/K PH,MBDB 250 MG TAB PO ONE (14:15)
[2021-05-03] MEDS: CHOLECALCIFEROL (VITAMIN D3) 5,000 UNIT TABLET PO SCH ×2 (14:32→21:00)
[2021-05-03] MEDS: NAPH,MB-DB/K PH,MBDB 250 MG TAB PO SCH ×2 (17:47→21:22)
[2021-05-03] MEDS: FOLIC ACID 1 MG TABLET PO SCH (17:47)
[2021-05-03] MEDS: MULTIVITS,CA,MINERALS/IRON/FA 1 TABLET PO SCH (21:25)
[2021-05-03] MEDS: QUEtiapine FUMARATE 25 MG TABLET PO SCH (21:25)
[2021-05-04 01:00] VITALS: BP_SYST 100
[2021-05-04] MEDS: traMADol HCL HCL 50 MG TABLET (ULTRAM) PO PRN ×4 (05:05→20:39)
[2021-05-04] MEDS: LR 1,000 ML IV SCH ×2 (05:05→15:57)
[2021-05-04 06:54] LABS: BASOPHILS # (AUTO) 0.1 K/uL (0.0-0.2); BASOPHILS % (AUTO) 1.2 % (0.0-2.0); EOSINOPHILS # (AUTO) 0.2 K/uL (0.0-0.4); EOSINOPHILS % (AUTO) 5.3 % (0.0-4.0); HEMATOCRIT 29.7 % (36-48); HEMOGLOBIN 9.9 g/dL (12.0-16.0); LYMPHOCYTES # (AUTO) 1.7 K/uL (1.0-5.5); LYMPHOCYTES % (AUTO) 37.5 % (20.5-51.5); MEAN CORPUSCULAR HEMOGLOBIN 29 pg (27-31); MEAN CORPUSCULAR HGB CONC 33 % (32-36); MEAN CORPUSCULAR VOLUME 88 fL (79.0-98.0); MONOCYTES # (AUTO) 0.4 K/uL (0.0-1.0); MONOCYTES % (AUTO) 8.7 % (1.7-9.3); NEUTROPHILS # (AUTO) 2.1 K/uL (1.8-7.7); NEUTROPHILS % (AUTO) 47.3 % (40.0-70.0); PLATELET COUNT (AUTO) 172 K/uL (130-430); RED BLOOD CELL COUNT(AUTO) 3.37 MIL/uL (4.2-6.2); RED CELL DISTRIBUTION WIDTH 15.4 % (9.0-15.0)
[2021-05-04 07:33] LABS: ALBUMIN 2.9 g/dL (3.4-4.8); CALCIUM 8.6 mg/dL (8.4-11.0); CREATININE 0.39 mg/dL (0.55-1.30); PHOSPHORUS 3.5 mg/dL (2.7-4.5); POTASSIUM 4.5 mmol/L (3.5-5.1); TOTAL BILIRUBIN 0.4 mg/dL (0.0-1.0)
[2021-05-04 07:54] LABS: WHITE BLOOD COUNT (AUTO) 4.5 K/uL (4.8-10.8)
[2021-05-04] MEDS: CHOLECALCIFEROL (VITAMIN D3) 5,000 UNIT TABLET PO SCH ×3 (09:00→20:37)
[2021-05-04] MEDS ORDERED: POTASSIUM CHLORIDE 20 MEQ TAB.PRT.SR PO SCH (09:00)
[2021-05-04 09:23] VITALS: BP_SYST 125
[2021-05-04 09:29] VITALS: BP_SYST 125
[2021-05-04] MEDS: NAPH,MB-DB/K PH,MBDB 250 MG TAB PO SCH ×4 (09:49→20:39)
[2021-05-04] MEDS: QUEtiapine FUMARATE 25 MG TABLET PO SCH ×2 (09:49→20:39)
[2021-05-04] MEDS: MULTIVITS,CA,MINERALS/IRON/FA 1 TABLET PO SCH ×2 (09:49→20:39)
[2021-05-04] MEDS: THIAMINE HCL 100 MG TABLET PO SCH (09:50)
[2021-05-04] MEDS: POTASSIUM CHLORIDE 20 MEQ TAB.PRT.SR PO SCH (09:50)
[2021-05-04 11:20] LABS: PROTHROMBIN TIME 10.9 SECS (9.5-12.5)
[2021-05-04 12:43] VITALS: BP_SYST 125
[2021-05-04] MEDS ORDERED: MAGNESIUM SULFATE 4 GM in D5W 250 ML IV ONE (14:00)
[2021-05-04 16:00] VITALS: BP_SYST 115
[2021-05-04] MEDS: FOLIC ACID 1 MG TABLET PO SCH (18:19)
[2021-05-05] MEDS: traMADol HCL HCL 50 MG TABLET (ULTRAM) PO PRN ×3 (01:28→09:58)
[2021-05-05 01:45] VITALS: BP_SYST 105
[2021-05-05] MEDS: LORazepam 2 MG/ML VIAL IVP PRN (02:26)
[2021-05-05 02:46] VITALS: BP_SYST 101
[2021-05-05 06:04] LABS: BASOPHILS % (AUTO) 0.9 % (0.0-2.0); EOSINOPHILS # (AUTO) 0.3 K/uL (0.0-0.4); EOSINOPHILS % (AUTO) 6.5 % (0.0-4.0); HEMATOCRIT 28.8 % (36-48); HEMOGLOBIN 9.5 g/dL (12.0-16.0); LYMPHOCYTES # (AUTO) 1.9 K/uL (1.0-5.5); LYMPHOCYTES % (AUTO) 36.4 % (20.5-51.5); MEAN CORPUSCULAR HEMOGLOBIN 29 pg (27-31); MEAN CORPUSCULAR HGB CONC 33 % (32-36); MEAN CORPUSCULAR VOLUME 89 fL (79.0-98.0); MONOCYTES # (AUTO) 0.5 K/uL (0.0-1.0); MONOCYTES % (AUTO) 9.4 % (1.7-9.3); NEUTROPHILS # (AUTO) 2.4 K/uL (1.8-7.7); NEUTROPHILS % (AUTO) 46.8 % (40.0-70.0); PLATELET COUNT (AUTO) 144 K/uL (130-430); RED BLOOD CELL COUNT(AUTO) 3.25 MIL/uL (4.2-6.2); RED CELL DISTRIBUTION WIDTH 15.6 % (9.0-15.0); WHITE BLOOD COUNT (AUTO) 5.2 K/uL (4.8-10.8)
[2021-05-05 06:35] LABS: ALBUMIN 2.8 g/dL (3.4-4.8); CALCIUM 8.5 mg/dL (8.4-11.0); CREATININE 0.32 mg/dL (0.55-1.30); PHOSPHORUS 5.1 mg/dL (2.7-4.5); POTASSIUM 4.2 mmol/L (3.5-5.1); TOTAL BILIRUBIN 0.3 mg/dL (0.0-1.0)
[2021-05-05 08:00] VITALS: BP_SYST 126
[2021-05-05] MEDS: MULTIVITS,CA,MINERALS/IRON/FA 1 TABLET PO SCH ×2 (08:38→20:43)
[2021-05-05] MEDS: NAPH,MB-DB/K PH,MBDB 250 MG TAB PO SCH (08:38)
[2021-05-05] MEDS: CHOLECALCIFEROL (VITAMIN D3) 5,000 UNIT TABLET PO SCH ×2 (08:38→20:43)
[2021-05-05] MEDS: QUEtiapine FUMARATE 25 MG TABLET PO SCH (08:38)
[2021-05-05] MEDS: THIAMINE HCL 100 MG TABLET PO SCH (08:38)
[2021-05-05] MEDS ORDERED: METOPROLOL SUCCINATE 25 MG TAB.SR.24H (TOPROL XL) PO ONE (09:00)
[2021-05-05 12:00] VITALS: BP_SYST 114
[2021-05-05] MEDS: LR 1,000 ML IV SCH (12:50)
[2021-05-05 16:13] VITALS: BP_SYST 106
[2021-05-05] MEDS: FOLIC ACID 1 MG TABLET PO SCH (17:31)
[2021-05-05] MEDS: DULoxetine HCL 30 MG CAPSULE.DR (CYMBALTA) PO SCH (20:43)
[2021-05-05] MEDS: MUPIROCIN 2% TOPICAL OINTMENT 22 GM NS SCH (21:00)
[2021-05-06 00:56] VITALS: BP_SYST 127
[2021-05-06 00:59] VITALS: BP_SYST 127
[2021-05-06 01:28] VITALS: BP_SYST 108
[2021-05-06 07:36] LABS: ALBUMIN 2.8 g/dL (3.4-4.8); C-REACTIVE PROTEIN QUANT 0.4 mg/dL (0-0.5); CALCIUM 8.1 mg/dL (8.4-11.0); CREATININE 0.37 mg/dL (0.55-1.30); PHOSPHORUS 4.2 mg/dL (2.7-4.5); POTASSIUM 4.4 mmol/L (3.5-5.1); TOTAL BILIRUBIN 0.6 mg/dL (0.0-1.0)
[2021-05-06 07:38] LABS: BASOPHILS # (AUTO) 0.1 K/uL (0.0-0.2); BASOPHILS % (AUTO) 0.8 % (0.0-2.0); EOSINOPHILS # (AUTO) 0.2 K/uL (0.0-0.4); EOSINOPHILS % (AUTO) 3.5 % (0.0-4.0); HEMOGLOBIN 9.5 g/dL (12.0-16.0); LYMPHOCYTES # (AUTO) 1.5 K/uL (1.0-5.5); LYMPHOCYTES % (AUTO) 23.8 % (20.5-51.5); MEAN CORPUSCULAR HEMOGLOBIN 29 pg (27-31); MEAN CORPUSCULAR HGB CONC 33 % (32-36); MEAN CORPUSCULAR VOLUME 90 fL (79.0-98.0); MONOCYTES # (AUTO) 0.6 K/uL (0.0-1.0); MONOCYTES % (AUTO) 10.1 % (1.7-9.3); NEUTROPHILS # (AUTO) 3.8 K/uL (1.8-7.7); NEUTROPHILS % (AUTO) 61.8 % (40.0-70.0); PLATELET COUNT (AUTO) 148 K/uL (130-430); RED BLOOD CELL COUNT(AUTO) 3.22 MIL/uL (4.2-6.2); RED CELL DISTRIBUTION WIDTH 15.8 % (9.0-15.0); WHITE BLOOD COUNT (AUTO) 6.2 K/uL (4.8-10.8)
[2021-05-06 08:00] VITALS: BP_SYST 100
[2021-05-06 08:06] LABS: HEPATITIS A AB, IgM Negative (Negative); HEPATITIS B CORE AB, IgM Negative (Negative); HEPATITIS B SURFACE AG Negative (Negative)
[2021-05-06] MEDS: LR 1,000 ML IV SCH (08:07)
[2021-05-06] MEDS: MULTIVITS,CA,MINERALS/IRON/FA 1 TABLET PO SCH ×2 (09:28→21:00)
[2021-05-06] MEDS: THIAMINE HCL 100 MG TABLET PO SCH (09:28)
[2021-05-06] MEDS: DULoxetine HCL 30 MG CAPSULE.DR (CYMBALTA) PO SCH ×2 (09:28→21:00)
[2021-05-06] MEDS: METOPROLOL SUCCINATE 25 MG TAB.SR.24H (TOPROL XL) PO SCH (09:28)
[2021-05-06] MEDS: CHOLECALCIFEROL (VITAMIN D3) 5,000 UNIT TABLET PO SCH ×2 (09:28→21:00)
[2021-05-06] MEDS: MUPIROCIN 2% TOPICAL OINTMENT 22 GM NS SCH (09:29)
[2021-05-06 12:00] VITALS: BP_SYST 112
[2021-05-06] MEDS ORDERED: MAGNESIUM OXIDE 400 MG TABLET PO ONE (14:45)
[2021-05-06 16:00] VITALS: BP_SYST 120
[2021-05-06] MEDS: FOLIC ACID 1 MG TABLET PO SCH (19:42)
[2021-05-06] MEDS: MAGNESIUM OXIDE 400 MG TABLET PO SCH (21:00)
[2021-05-07 00:19] VITALS: BP_SYST 146
[2021-05-07] MEDS: LORazepam 2 MG/ML VIAL IVP PRN (00:50)
[2021-05-07] MEDS: MUPIROCIN 2% TOPICAL OINTMENT 22 GM NS SCH ×3 (04:01→21:57)
[2021-05-07] MEDS: LR 1,000 ML IV SCH (04:03)
[2021-05-07 05:10] VITALS: BP_SYST 118
[2021-05-07 08:00] VITALS: BP_SYST 127
[2021-05-07] MEDS: DULoxetine HCL 30 MG CAPSULE.DR (CYMBALTA) PO SCH ×2 (10:01→21:57)
[2021-05-07] MEDS: THIAMINE HCL 100 MG TABLET PO SCH (10:01)
[2021-05-07] MEDS: MULTIVITS,CA,MINERALS/IRON/FA 1 TABLET PO SCH ×2 (10:02→21:57)
[2021-05-07] MEDS: CHOLECALCIFEROL (VITAMIN D3) 5,000 UNIT TABLET PO SCH ×2 (10:03→21:57)
[2021-05-07] MEDS: MAGNESIUM OXIDE 400 MG TABLET PO SCH ×2 (10:03→21:57)
[2021-05-07] MEDS: METOPROLOL SUCCINATE 25 MG TAB.SR.24H (TOPROL XL) PO SCH (10:05)
[2021-05-07] MEDS: traMADol HCL HCL 50 MG TABLET (ULTRAM) PO PRN ×3 (10:12→19:30)
[2021-05-07 12:00] VITALS: BP_SYST 133
[2021-05-07] MEDS: GABAPENTIN 100 MG CAPSULE PO PRN (12:44)
[2021-05-07] MEDS: ACETAMINOPHEN 325 MG TABLET PO PRN ×2 (14:14→19:30)
[2021-05-07 16:00] VITALS: BP_SYST 133
[2021-05-07] MEDS: FOLIC ACID 1 MG TABLET PO SCH (18:21)
[2021-05-07 20:00] VITALS: BP_SYST 123
[2021-05-08] MEDS: ACETAMINOPHEN 325 MG TABLET PO PRN ×2 (00:09→09:08)
[2021-05-08] MEDS: traMADol HCL HCL 50 MG TABLET (ULTRAM) PO PRN ×2 (00:10→09:08)
[2021-05-08 01:14] VITALS: BP_SYST 121
[2021-05-08] MEDS: LR 1,000 ML IV SCH ×2 (01:24→20:43)
[2021-05-08 08:44] VITALS: BP_SYST 98
[2021-05-08] MEDS: METOPROLOL SUCCINATE 25 MG TAB.SR.24H (TOPROL XL) PO SCH (09:00)
[2021-05-08] MEDS: GABAPENTIN 100 MG CAPSULE PO PRN (09:07)
[2021-05-08] MEDS: THIAMINE HCL 100 MG TABLET PO SCH (09:07)
[2021-05-08] MEDS: DULoxetine HCL 30 MG CAPSULE.DR (CYMBALTA) PO SCH (09:07)
[2021-05-08] MEDS: MULTIVITS,CA,MINERALS/IRON/FA 1 TABLET PO SCH ×2 (09:07→21:32)
[2021-05-08] MEDS: CHOLECALCIFEROL (VITAMIN D3) 5,000 UNIT TABLET PO SCH ×2 (09:07→21:33)
[2021-05-08] MEDS: MAGNESIUM OXIDE 400 MG TABLET PO SCH ×2 (09:07→21:32)
[2021-05-08] MEDS: MUPIROCIN 2% TOPICAL OINTMENT 22 GM NS SCH ×2 (09:09→21:34)
[2021-05-08 09:30] LABS: CALCIUM 8.5 mg/dL (8.4-11.0); CREATININE 0.42 mg/dL (0.55-1.30); POTASSIUM 4.1 mmol/L (3.5-5.1)
[2021-05-08 12:10] VITALS: BP_SYST 127
[2021-05-08 16:00] VITALS: BP_SYST 117
[2021-05-08 21:07] VITALS: BP_SYST 130
[2021-05-08] MEDS: GABAPENTIN 100 MG CAPSULE PO SCH (21:32)
[2021-05-08] MEDS: FOLIC ACID 1 MG TABLET PO SCH (21:33)
[2021-05-08] MEDS: TEMAZEPAM 15 MG CAPSULE PO PRN (23:38)
[2021-05-09] VITALS: BP_SYST 129
[2021-05-09] MEDS: ACETAMINOPHEN 325 MG TABLET PO PRN ×2 (04:16→09:18)
[2021-05-09] MEDS: THIAMINE HCL 100 MG TABLET PO SCH (09:15)
[2021-05-09] MEDS: METOPROLOL SUCCINATE 25 MG TAB.SR.24H (TOPROL XL) PO SCH (09:16)
[2021-05-09] MEDS: CHOLECALCIFEROL (VITAMIN D3) 5,000 UNIT TABLET PO SCH ×2 (09:16→21:49)
[2021-05-09] MEDS: MAGNESIUM OXIDE 400 MG TABLET PO SCH ×2 (09:16→21:49)
[2021-05-09] MEDS: PARoxetine HCL 20 MG TABLET PO SCH (09:16)
[2021-05-09] MEDS: MUPIROCIN 2% TOPICAL OINTMENT 22 GM NS SCH ×2 (09:19→21:50)
[2021-05-09] MEDS: GABAPENTIN 100 MG CAPSULE PO SCH ×3 (09:19→21:49)
[2021-05-09] MEDS: MULTIVITS,CA,MINERALS/IRON/FA 1 TABLET PO SCH ×2 (09:26→21:49)
[2021-05-09] MEDS: traMADol HCL HCL 50 MG TABLET (ULTRAM) PO PRN ×2 (12:41→23:19)
[2021-05-09 13:03] VITALS: BP_SYST 105
[2021-05-09 15:49] LABS: BASOPHILS # (AUTO) 0.1 K/uL (0.0-0.2); EOSINOPHILS # (AUTO) 0.1 K/uL (0.0-0.4); EOSINOPHILS % (AUTO) 1.9 % (0.0-4.0); HEMATOCRIT 29.9 % (36-48); HEMOGLOBIN 9.7 g/dL (12.0-16.0); LYMPHOCYTES # (AUTO) 1.2 K/uL (1.0-5.5); LYMPHOCYTES % (AUTO) 17.9 % (20.5-51.5); MEAN CORPUSCULAR HEMOGLOBIN 29 pg (27-31); MEAN CORPUSCULAR HGB CONC 33 % (32-36); MEAN CORPUSCULAR VOLUME 88 fL (79.0-98.0); MONOCYTES # (AUTO) 0.7 K/uL (0.0-1.0); MONOCYTES % (AUTO) 10.6 % (1.7-9.3); NEUTROPHILS # (AUTO) 4.4 K/uL (1.8-7.7); NEUTROPHILS % (AUTO) 68.6 % (40.0-70.0); PLATELET COUNT (AUTO) 279 K/uL (130-430); RED BLOOD CELL COUNT(AUTO) 3.39 MIL/uL (4.2-6.2); RED CELL DISTRIBUTION WIDTH 16.2 % (9.0-15.0); RETICULOCYTE COUNT 4.3 % (0.5-1.5); WHITE BLOOD COUNT (AUTO) 6.5 K/uL (4.8-10.8)
[2021-05-09 15:54] LABS: CALCIUM 8.7 mg/dL (8.4-11.0); CREATININE 0.39 mg/dL (0.55-1.30); POTASSIUM 4.1 mmol/L (3.5-5.1)
[2021-05-09 16:01] LABS: ALBUMIN 3.4 g/dL (3.4-4.8); PHOSPHORUS 4.8 mg/dL (2.7-4.5); TOTAL BILIRUBIN 0.3 mg/dL (0.0-1.0)
[2021-05-09] MEDS: LR 1,000 ML IV SCH (16:04)
[2021-05-09 18:00] VITALS: BP_SYST 144
[2021-05-09] MEDS: FOLIC ACID 1 MG TABLET PO SCH (18:51)
[2021-05-09 20:15] VITALS: BP_SYST 120
[2021-05-10 00:51] VITALS: BP_SYST 122
[2021-05-10 01:00] VITALS: BP_SYST 121
[2021-05-10 07:56] LABS: BASOPHILS % (AUTO) 0.4 % (0.0-2.0); EOSINOPHILS # (AUTO) 0.1 K/uL (0.0-0.4); EOSINOPHILS % (AUTO) 1.8 % (0.0-4.0); HEMATOCRIT 27.6 % (36-48); HEMOGLOBIN 9.2 g/dL (12.0-16.0); LYMPHOCYTES # (AUTO) 2.2 K/uL (1.0-5.5); LYMPHOCYTES % (AUTO) 27.7 % (20.5-51.5); MEAN CORPUSCULAR HEMOGLOBIN 29 pg (27-31); MEAN CORPUSCULAR HGB CONC 33 % (32-36); MEAN CORPUSCULAR VOLUME 88 fL (79.0-98.0); MONOCYTES # (AUTO) 0.8 K/uL (0.0-1.0); MONOCYTES % (AUTO) 10.1 % (1.7-9.3); NEUTROPHILS # (AUTO) 4.9 K/uL (1.8-7.7); PLATELET COUNT (AUTO) 283 K/uL (130-430); RED BLOOD CELL COUNT(AUTO) 3.13 MIL/uL (4.2-6.2); RED CELL DISTRIBUTION WIDTH 16.1 % (9.0-15.0); WHITE BLOOD COUNT (AUTO) 8.1 K/uL (4.8-10.8)
[2021-05-10 08:00] VITALS: BP_SYST 113
[2021-05-10 08:38] LABS: ALBUMIN 2.8 g/dL (3.4-4.8); CALCIUM 8.2 mg/dL (8.4-11.0); CREATININE 0.39 mg/dL (0.55-1.30); POTASSIUM 3.4 mmol/L (3.5-5.1); TOTAL BILIRUBIN 0.2 mg/dL (0.0-1.0)
[2021-05-10] MEDS: PARoxetine HCL 20 MG TABLET PO SCH (09:02)
[2021-05-10] MEDS: traMADol HCL HCL 50 MG TABLET (ULTRAM) PO PRN ×3 (09:02→22:57)
[2021-05-10] MEDS: METOPROLOL SUCCINATE 25 MG TAB.SR.24H (TOPROL XL) PO SCH (09:03)
[2021-05-10] MEDS: THIAMINE HCL 100 MG TABLET PO SCH (09:03)
[2021-05-10] MEDS: CHOLECALCIFEROL (VITAMIN D3) 5,000 UNIT TABLET PO SCH ×2 (09:03→21:22)
[2021-05-10] MEDS: MAGNESIUM OXIDE 400 MG TABLET PO SCH ×2 (09:03→21:22)
[2021-05-10] MEDS: MULTIVITS,CA,MINERALS/IRON/FA 1 TABLET PO SCH ×2 (09:03→21:21)
[2021-05-10] MEDS: GABAPENTIN 100 MG CAPSULE PO SCH ×3 (09:03→21:21)
[2021-05-10] MEDS: MUPIROCIN 2% TOPICAL OINTMENT 22 GM NS SCH ×2 (09:04→21:22)
[2021-05-10] MEDS: LR 1,000 ML IV SCH (10:40)
[2021-05-10 12:22] VITALS: BP_SYST 111
[2021-05-10] MEDS ORDERED: POTASSIUM CHLORIDE 20 MEQ TAB.PRT.SR PO ONE (14:15)
[2021-05-10] MEDS: cefTRIAXone 1 GM in D5W 50 ML IV SCH (15:57)
[2021-05-10 16:30] VITALS: BP_SYST 114
[2021-05-10] MEDS: FOLIC ACID 1 MG TABLET PO SCH (17:09)
[2021-05-10 20:00] VITALS: BP_SYST 106
[2021-05-10] MEDS: POTASSIUM CHLORIDE 20 MEQ TAB.PRT.SR PO SCH (21:21)
[2021-05-11 00:16] VITALS: BP_SYST 116
[2021-05-11] MEDS: traMADol HCL HCL 50 MG TABLET (ULTRAM) PO PRN ×4 (03:05→21:16)
[2021-05-11] MEDS: ACETAMINOPHEN 325 MG TABLET PO PRN (04:27)
[2021-05-11 07:04] LABS: BASOPHILS % (AUTO) 0.6 % (0.0-2.0); EOSINOPHILS # (AUTO) 0.2 K/uL (0.0-0.4); EOSINOPHILS % (AUTO) 2.7 % (0.0-4.0); HEMATOCRIT 28.5 % (36-48); HEMOGLOBIN 9.3 g/dL (12.0-16.0); LYMPHOCYTES # (AUTO) 1.9 K/uL (1.0-5.5); LYMPHOCYTES % (AUTO) 30.3 % (20.5-51.5); MEAN CORPUSCULAR HEMOGLOBIN 29 pg (27-31); MEAN CORPUSCULAR HGB CONC 33 % (32-36); MEAN CORPUSCULAR VOLUME 89 fL (79.0-98.0); MONOCYTES # (AUTO) 0.9 K/uL (0.0-1.0); MONOCYTES % (AUTO) 13.8 % (1.7-9.3); NEUTROPHILS # (AUTO) 3.3 K/uL (1.8-7.7); NEUTROPHILS % (AUTO) 52.6 % (40.0-70.0); PLATELET COUNT (AUTO) 297 K/uL (130-430); RED CELL DISTRIBUTION WIDTH 15.9 % (9.0-15.0); WHITE BLOOD COUNT (AUTO) 6.3 K/uL (4.8-10.8)
[2021-05-11 07:22] LABS: CALCIUM 8.5 mg/dL (8.4-11.0); CREATININE 0.46 mg/dL (0.55-1.30); PHOSPHORUS 3.7 mg/dL (2.7-4.5); POTASSIUM 4.3 mmol/L (3.5-5.1)
[2021-05-11 07:46] LABS: BILIRUBIN,URINE NEGATIVE (NEGATIVE); BLOOD, URINE TRACE (NEGATIVE); CLARITY/URINE CLEAR (CLEAR); COLOR,URINE YELLOW (YELLOW); GLUCOSE,URINE NEGATIVE (NEGATIVE); KETONES,URINE NEGATIVE (NEGATIVE); LEUKOCYTE ESTERASE ,URINE 3+ (NEGATIVE); NITRITE, URINE POSITIVE (NEGATIVE); PROTEIN URINE NEGATIVE (NEGATIVE); UROBILINOGEN,URINE 0.2 (0.2-1.0)
[2021-05-11 07:49] LABS: BACTERIA,URINE MODERATE /HPF (None Seen); MUCUS,URINE 1+ /LPF (None Seen); WBC,URINE 20-50 /HPF (0-3)
[2021-05-11 08:00] VITALS: BP_SYST 108
[2021-05-11] MEDS: MULTIVITS,CA,MINERALS/IRON/FA 1 TABLET PO SCH ×2 (08:22→21:16)
[2021-05-11] MEDS: THIAMINE HCL 100 MG TABLET PO SCH (08:22)
[2021-05-11] MEDS: MUPIROCIN 2% TOPICAL OINTMENT 22 GM NS SCH ×2 (08:23→20:58)
[2021-05-11] MEDS: GABAPENTIN 100 MG CAPSULE PO SCH ×3 (08:23→20:58)
[2021-05-11] MEDS: PARoxetine HCL 20 MG TABLET PO SCH (08:23)
[2021-05-11] MEDS: CHOLECALCIFEROL (VITAMIN D3) 5,000 UNIT TABLET PO SCH ×2 (08:23→20:58)
[2021-05-11] MEDS: MAGNESIUM OXIDE 400 MG TABLET PO SCH ×2 (08:23→20:58)
[2021-05-11] MEDS: METOPROLOL SUCCINATE 25 MG TAB.SR.24H (TOPROL XL) PO SCH (08:23)
[2021-05-11] MEDS: POTASSIUM CHLORIDE 20 MEQ TAB.PRT.SR PO SCH ×2 (08:23→20:58)
[2021-05-11] MEDS: LR 1,000 ML IV SCH (08:24)
[2021-05-11] MEDS: LORazepam 2 MG/ML VIAL IVP PRN (10:33)
[2021-05-11 12:00] VITALS: BP_SYST 110
[2021-05-11] MEDS ORDERED: MAGNESIUM SULFATE 50 ML IV ONE (15:00)
[2021-05-11] MEDS: cefTRIAXone 1 GM in D5W 50 ML IV SCH (15:17)
[2021-05-11 16:00] VITALS: BP_SYST 119
[2021-05-11] MEDS: FOLIC ACID 1 MG TABLET PO SCH (17:30)
[2021-05-11 20:00] VITALS: BP_SYST 122
[2021-05-12 00:20] VITALS: BP_SYST 118
[2021-05-12] MEDS: LR 1,000 ML IV SCH (05:02)
[2021-05-12] MEDS: traMADol HCL HCL 50 MG TABLET (ULTRAM) PO PRN (05:13)
[2021-05-12 08:00] VITALS: BP_SYST 121
[2021-05-12] MEDS: GABAPENTIN 100 MG CAPSULE PO SCH ×3 (08:13→21:09)
[2021-05-12] MEDS: PARoxetine HCL 20 MG TABLET PO SCH (08:13)
[2021-05-12] MEDS: METOPROLOL SUCCINATE 25 MG TAB.SR.24H (TOPROL XL) PO SCH (08:13)
[2021-05-12] MEDS: MAGNESIUM OXIDE 400 MG TABLET PO SCH ×2 (08:13→21:09)
[2021-05-12] MEDS: POTASSIUM CHLORIDE 20 MEQ TAB.PRT.SR PO SCH ×2 (08:13→21:09)
[2021-05-12] MEDS: CHOLECALCIFEROL (VITAMIN D3) 5,000 UNIT TABLET PO SCH ×2 (08:13→21:08)
[2021-05-12] MEDS: THIAMINE HCL 100 MG TABLET PO SCH (08:13)
[2021-05-12] MEDS: MUPIROCIN 2% TOPICAL OINTMENT 22 GM NS SCH ×2 (08:15→21:10)
[2021-05-12] MEDS: MULTIVITS,CA,MINERALS/IRON/FA 1 TABLET PO SCH ×2 (08:15→21:09)
[2021-05-12 12:56] VITALS: BP_SYST 127
[2021-05-12] MEDS: cefTRIAXone 1 GM in D5W 50 ML IV SCH (15:21)
[2021-05-12 16:00] VITALS: BP_SYST 119
[2021-05-12 18:10] VITALS: BP_SYST 114
[2021-05-12] MEDS: FOLIC ACID 1 MG TABLET PO SCH (18:16)
[2021-05-12 20:00] VITALS: BP_SYST 105
[2021-05-13] MEDS: LR 1,000 ML IV SCH ×2 (00:07→21:43)
[2021-05-13 00:25] VITALS: BP_SYST 105
[2021-05-13] MEDS: traMADol HCL HCL 50 MG TABLET (ULTRAM) PO PRN ×6 (02:15→21:21)
[2021-05-13 07:25] LABS: BASOPHILS % (AUTO) 0.8 % (0.0-2.0); EOSINOPHILS # (AUTO) 0.1 K/uL (0.0-0.4); EOSINOPHILS % (AUTO) 1.3 % (0.0-4.0); HEMOGLOBIN 9.5 g/dL (12.0-16.0); LYMPHOCYTES # (AUTO) 1.4 K/uL (1.0-5.5); LYMPHOCYTES % (AUTO) 34.1 % (20.5-51.5); MEAN CORPUSCULAR HEMOGLOBIN 29 pg (27-31); MEAN CORPUSCULAR HGB CONC 33 % (32-36); MEAN CORPUSCULAR VOLUME 88 fL (79.0-98.0); MONOCYTES # (AUTO) 0.9 K/uL (0.0-1.0); MONOCYTES % (AUTO) 20.3 % (1.7-9.3); NEUTROPHILS # (AUTO) 1.8 K/uL (1.8-7.7); NEUTROPHILS % (AUTO) 43.5 % (40.0-70.0); PLATELET COUNT (AUTO) 269 K/uL (130-430); RED CELL DISTRIBUTION WIDTH 15.9 % (9.0-15.0); WHITE BLOOD COUNT (AUTO) 4.2 K/uL (4.8-10.8)
[2021-05-13 07:51] LABS: ALBUMIN 2.7 g/dL (3.4-4.8); CALCIUM 8.5 mg/dL (8.4-11.0); CREATININE 0.51 mg/dL (0.55-1.30); PHOSPHORUS 4.5 mg/dL (2.7-4.5); POTASSIUM 5.1 mmol/L (3.5-5.1); TOTAL BILIRUBIN 0.1 mg/dL (0.0-1.0)
[2021-05-13 08:00] VITALS: BP_SYST 110
[2021-05-13] MEDS: MAGNESIUM OXIDE 400 MG TABLET PO SCH ×2 (08:08→21:20)
[2021-05-13] MEDS: PARoxetine HCL 20 MG TABLET PO SCH (08:08)
[2021-05-13] MEDS: THIAMINE HCL 100 MG TABLET PO SCH (08:08)
[2021-05-13] MEDS: POTASSIUM CHLORIDE 20 MEQ TAB.PRT.SR PO SCH (08:08)
[2021-05-13] MEDS: CHOLECALCIFEROL (VITAMIN D3) 5,000 UNIT TABLET PO SCH ×2 (08:08→21:18)
[2021-05-13] MEDS: GABAPENTIN 100 MG CAPSULE PO SCH ×3 (08:08→21:19)
[2021-05-13] MEDS: MULTIVITS,CA,MINERALS/IRON/FA 1 TABLET PO SCH ×2 (08:09→21:20)
[2021-05-13] MEDS: METOPROLOL SUCCINATE 25 MG TAB.SR.24H (TOPROL XL) PO SCH (08:13)
[2021-05-13] MEDS: MUPIROCIN 2% TOPICAL OINTMENT 22 GM NS SCH ×2 (08:13→21:00)
[2021-05-13] MEDS: ACETAMINOPHEN 325 MG TABLET PO PRN (09:15)
[2021-05-13 12:00] VITALS: BP_SYST 124; BP_SYST 99
[2021-05-13] MEDS: cefTRIAXone 1 GM in D5W 50 ML IV SCH (16:25)
[2021-05-13 16:54] VITALS: BP_SYST 107
[2021-05-13] MEDS: FOLIC ACID 1 MG TABLET PO SCH (17:21)
[2021-05-13 20:00] VITALS: BP_SYST 97
[2021-05-14] MEDS: TEMAZEPAM 15 MG CAPSULE PO PRN (00:02)
[2021-05-14 03:02] VITALS: BP_SYST 99
[2021-05-14] MEDS: traMADol HCL HCL 50 MG TABLET (ULTRAM) PO PRN ×7 (03:05→21:19)
[2021-05-14] MEDS: ACETAMINOPHEN 325 MG TABLET PO PRN ×2 (05:33→14:21)
[2021-05-14 08:00] VITALS: BP_SYST 116
[2021-05-14] MEDS: METOPROLOL SUCCINATE 25 MG TAB.SR.24H (TOPROL XL) PO SCH (08:31)
[2021-05-14] MEDS: PARoxetine HCL 20 MG TABLET PO SCH (08:31)
[2021-05-14] MEDS: CHOLECALCIFEROL (VITAMIN D3) 5,000 UNIT TABLET PO SCH ×2 (08:31→20:48)
[2021-05-14] MEDS: MAGNESIUM OXIDE 400 MG TABLET PO SCH ×2 (08:31→20:48)
[2021-05-14] MEDS: MULTIVITS,CA,MINERALS/IRON/FA 1 TABLET PO SCH ×2 (08:31→20:48)
[2021-05-14] MEDS: THIAMINE HCL 100 MG TABLET PO SCH (08:31)
[2021-05-14] MEDS: MUPIROCIN 2% TOPICAL OINTMENT 22 GM NS SCH (08:32)
[2021-05-14 12:00] VITALS: BP_SYST 104
[2021-05-14] MEDS: GABAPENTIN 100 MG CAPSULE PO SCH ×3 (12:32→20:49)
[2021-05-14] MEDS: LR 1,000 ML IV SCH (15:34)
[2021-05-14 16:00] VITALS: BP_SYST 127
[2021-05-14 20:55] VITALS: BP_SYST 107
[2021-05-15] MEDS: traMADol HCL HCL 50 MG TABLET (ULTRAM) PO PRN ×2 (04:30→13:00)
[2021-05-15 04:39] VITALS: BP_SYST 107
[2021-05-15] MEDS: ACETAMINOPHEN 325 MG TABLET PO PRN ×2 (06:36→22:03)
[2021-05-15 07:51] LABS: CALCIUM 8.9 mg/dL (8.4-11.0); CREATININE 0.44 mg/dL (0.55-1.30); POTASSIUM 4.5 mmol/L (3.5-5.1)
[2021-05-15 08:00] VITALS: BP_SYST 102
[2021-05-15 08:03] LABS: BASOPHILS % (AUTO) 0.5 % (0.0-2.0); EOSINOPHILS # (AUTO) 0.1 K/uL (0.0-0.4); EOSINOPHILS % (AUTO) 1.8 % (0.0-4.0); HEMOGLOBIN 10.2 g/dL (12.0-16.0); LYMPHOCYTES # (AUTO) 2.5 K/uL (1.0-5.5); LYMPHOCYTES % (AUTO) 39.4 % (20.5-51.5); MEAN CORPUSCULAR HEMOGLOBIN 28 pg (27-31); MEAN CORPUSCULAR HGB CONC 32 % (32-36); MEAN CORPUSCULAR VOLUME 88 fL (79.0-98.0); MONOCYTES # (AUTO) 0.9 K/uL (0.0-1.0); MONOCYTES % (AUTO) 13.3 % (1.7-9.3); NEUTROPHILS # (AUTO) 2.9 K/uL (1.8-7.7); PLATELET COUNT (AUTO) 343 K/uL (130-430); RED BLOOD CELL COUNT(AUTO) 3.64 MIL/uL (4.2-6.2); RED CELL DISTRIBUTION WIDTH 16.5 % (9.0-15.0); WHITE BLOOD COUNT (AUTO) 6.5 K/uL (4.8-10.8)
[2021-05-15] MEDS: METOPROLOL SUCCINATE 25 MG TAB.SR.24H (TOPROL XL) PO SCH (09:00)
[2021-05-15] MEDS: CHOLECALCIFEROL (VITAMIN D3) 5,000 UNIT TABLET PO SCH ×2 (09:42→21:53)
[2021-05-15] MEDS: MULTIVITS,CA,MINERALS/IRON/FA 1 TABLET PO SCH ×2 (09:42→21:53)
[2021-05-15] MEDS: THIAMINE HCL 100 MG TABLET PO SCH (09:42)
[2021-05-15] MEDS: MAGNESIUM OXIDE 400 MG TABLET PO SCH ×2 (09:42→21:53)
[2021-05-15] MEDS: GABAPENTIN 100 MG CAPSULE PO SCH ×3 (09:42→21:53)
[2021-05-15] MEDS: PARoxetine HCL 20 MG TABLET PO SCH (09:43)
[2021-05-15] MEDS: MUPIROCIN 2% TOPICAL OINTMENT 22 GM NS SCH ×2 (09:43→21:53)
[2021-05-15 12:00] VITALS: BP_SYST 110
[2021-05-15] MEDS: LR 1,000 ML IV SCH (12:07)
[2021-05-15 16:00] VITALS: BP_SYST 108
[2021-05-15] MEDS: FOLIC ACID 1 MG TABLET PO SCH (17:38)
[2021-05-15 22:00] VITALS: BP_SYST 124
[2021-05-16 00:32] VITALS: BP_SYST 130
[2021-05-16 05:18] VITALS: BP_SYST 121
[2021-05-16] MEDS: traMADol HCL HCL 50 MG TABLET (ULTRAM) PO PRN ×2 (05:22→11:18)
[2021-05-16 08:00] VITALS: BP_SYST 118
[2021-05-16] MEDS: LR 1,000 ML IV SCH (08:07)
[2021-05-16] MEDS: MULTIVITS,CA,MINERALS/IRON/FA 1 TABLET PO SCH ×2 (08:45→22:06)
[2021-05-16] MEDS: THIAMINE HCL 100 MG TABLET PO SCH (08:45)
[2021-05-16] MEDS: ACETAMINOPHEN 325 MG TABLET PO PRN (08:46)
[2021-05-16] MEDS: MAGNESIUM OXIDE 400 MG TABLET PO SCH ×2 (08:48→22:06)
[2021-05-16] MEDS: CHOLECALCIFEROL (VITAMIN D3) 5,000 UNIT TABLET PO SCH ×2 (08:49→22:05)
[2021-05-16] MEDS: MUPIROCIN 2% TOPICAL OINTMENT 22 GM NS SCH ×2 (08:49→22:06)
[2021-05-16] MEDS: GABAPENTIN 100 MG CAPSULE PO SCH ×3 (08:49→22:05)
[2021-05-16] MEDS: METOPROLOL SUCCINATE 25 MG TAB.SR.24H (TOPROL XL) PO SCH (08:49)
[2021-05-16] MEDS ORDERED: PARoxetine HCL 20 MG TABLET PO SCH (09:00)
[2021-05-16 12:00] VITALS: BP_SYST 110
[2021-05-16 16:00] VITALS: BP_SYST 112
[2021-05-16] MEDS: FOLIC ACID 1 MG TABLET PO SCH (19:03)
[2021-05-16 20:17] LABS: ALANINE AMINOTRANSFERASE 60 U/L (12-78); ALBUMIN 3.4 g/dL (3.4-4.8); ANION GAP 9 (5-15); ASPARTATE AMINOTRANSFERASE 27 U/L (10-37); CALCIUM 9.4 mg/dL (8.4-11.0); CHLORIDE 102 mmol/L (98-107); CREATININE 0.51 mg/dL (0.55-1.30); GFR AFRICAN AMERICAN 172 mL/min (>90); GLUCOSE 103 mg/dL (70-99); PHOSPHORUS 4.4 mg/dL (2.7-4.5); POTASSIUM 4.1 mmol/L (3.5-5.1); SODIUM SERUM 137 mmol/L (136-145); TOTAL BILIRUBIN < 0.1 mg/dL (0.0-1.0); UREA NITROGEN, BLOOD 17 mg/dL (8-21)
[2021-05-16 20:27] LABS: BASOPHILS # (AUTO) 0.1 K/uL (0.0-0.2); BASOPHILS % (AUTO) 0.8 % (0.0-2.0); EOSINOPHILS # (AUTO) 0.1 K/uL (0.0-0.4); EOSINOPHILS % (AUTO) 1.3 % (0.0-4.0); HEMATOCRIT 34.3 % (36-48); HEMOGLOBIN 10.8 g/dL (12.0-16.0); LYMPHOCYTES # (AUTO) 2.9 K/uL (1.0-5.5); LYMPHOCYTES % (AUTO) 33.1 % (20.5-51.5); MEAN CORPUSCULAR HEMOGLOBIN 28 pg (27-31); MEAN CORPUSCULAR HGB CONC 32 % (32-36); MEAN CORPUSCULAR VOLUME 88 fL (79.0-98.0); MONOCYTES # (AUTO) 0.9 K/uL (0.0-1.0); MONOCYTES % (AUTO) 10.3 % (1.7-9.3); NEUTROPHILS # (AUTO) 4.8 K/uL (1.8-7.7); NEUTROPHILS % (AUTO) 54.5 % (40.0-70.0); PLATELET COUNT (AUTO) 402 K/uL (130-430); RED BLOOD CELL COUNT(AUTO) 3.89 MIL/uL (4.2-6.2); RED CELL DISTRIBUTION WIDTH 16.5 % (9.0-15.0); WHITE BLOOD COUNT (AUTO) 8.9 K/uL (4.8-10.8)
[2021-05-16 22:04] VITALS: BP_SYST 130
[2021-05-16] MEDS: TEMAZEPAM 15 MG CAPSULE PO PRN (22:05)
[2021-05-17 00:28] VITALS: BP_SYST 135
[2021-05-17] MEDS: traMADol HCL HCL 50 MG TABLET (ULTRAM) PO PRN ×4 (03:07→22:22)
[2021-05-17] MEDS: LR 1,000 ML IV SCH (04:07)
[2021-05-17 08:15] VITALS: BP_SYST 125
[2021-05-17] MEDS: THIAMINE HCL 100 MG TABLET PO SCH (08:39)
[2021-05-17] MEDS: MUPIROCIN 2% TOPICAL OINTMENT 22 GM NS SCH ×2 (08:39→22:25)
[2021-05-17] MEDS: CHOLECALCIFEROL (VITAMIN D3) 5,000 UNIT TABLET PO SCH ×2 (08:39→22:23)
[2021-05-17] MEDS: GABAPENTIN 100 MG CAPSULE PO SCH ×3 (08:40→22:23)
[2021-05-17] MEDS: PARoxetine HCL 20 MG TABLET PO SCH (08:40)
[2021-05-17] MEDS: MAGNESIUM OXIDE 400 MG TABLET PO SCH ×2 (08:40→22:23)
[2021-05-17] MEDS: MULTIVITS,CA,MINERALS/IRON/FA 1 TABLET PO SCH ×2 (08:40→22:20)
[2021-05-17] MEDS: METOPROLOL SUCCINATE 25 MG TAB.SR.24H (TOPROL XL) PO SCH (08:40)
[2021-05-17 16:35] VITALS: BP_SYST 124
[2021-05-17] MEDS: FOLIC ACID 1 MG TABLET PO SCH (18:16)
[2021-05-17] MEDS: TEMAZEPAM 15 MG CAPSULE PO PRN (22:21)
[2021-05-18] MEDS: LR 1,000 ML IV SCH ×2 (01:01→21:33)
[2021-05-18] MEDS: traMADol HCL HCL 50 MG TABLET (ULTRAM) PO PRN ×3 (05:56→09:57)
[2021-05-18 07:00] VITALS: BP_SYST 119
[2021-05-18] MEDS: MAGNESIUM OXIDE 400 MG TABLET PO SCH ×2 (09:52→21:33)
[2021-05-18] MEDS: CHOLECALCIFEROL (VITAMIN D3) 5,000 UNIT TABLET PO SCH ×2 (09:52→21:33)
[2021-05-18] MEDS: MULTIVITS,CA,MINERALS/IRON/FA 1 TABLET PO SCH ×2 (09:52→21:33)
[2021-05-18] MEDS: PARoxetine HCL 20 MG TABLET PO SCH (09:52)
[2021-05-18] MEDS: THIAMINE HCL 100 MG TABLET PO SCH (09:52)
[2021-05-18] MEDS: METOPROLOL SUCCINATE 25 MG TAB.SR.24H (TOPROL XL) PO SCH (09:53)
[2021-05-18] MEDS: MUPIROCIN 2% TOPICAL OINTMENT 22 GM NS SCH ×2 (09:55→21:38)
[2021-05-18] MEDS: GABAPENTIN 100 MG CAPSULE PO SCH ×3 (09:57→21:33)
[2021-05-18 16:00] VITALS: BP_SYST 138
[2021-05-18] MEDS: FOLIC ACID 1 MG TABLET PO SCH (17:48)
[2021-05-18 20:00] VITALS: BP_SYST 126
[2021-05-19] VITALS: BP_SYST 129; BP_SYST 130
[2021-05-19] MEDS: traMADol HCL HCL 50 MG TABLET (ULTRAM) PO PRN ×4 (01:30→22:58)
[2021-05-19 07:41] LABS: ALBUMIN 3.1 g/dL (3.4-4.8); CREATININE 0.42 mg/dL (0.55-1.30); PHOSPHORUS 5.1 mg/dL (2.7-4.5); POTASSIUM 4.1 mmol/L (3.5-5.1); TOTAL BILIRUBIN 0.3 mg/dL (0.0-1.0)
[2021-05-19 08:15] VITALS: BP_SYST 125
[2021-05-19 08:17] LABS: BASOPHILS # (AUTO) 0.1 K/uL (0.0-0.2); EOSINOPHILS # (AUTO) 0.2 K/uL (0.0-0.4); EOSINOPHILS % (AUTO) 1.7 % (0.0-4.0); HEMATOCRIT 32.8 % (36-48); HEMOGLOBIN 10.3 g/dL (12.0-16.0); LYMPHOCYTES # (AUTO) 2.8 K/uL (1.0-5.5); LYMPHOCYTES % (AUTO) 29.3 % (20.5-51.5); MEAN CORPUSCULAR HEMOGLOBIN 28 pg (27-31); MEAN CORPUSCULAR HGB CONC 32 % (32-36); MEAN CORPUSCULAR VOLUME 87 fL (79.0-98.0); MONOCYTES # (AUTO) 0.8 K/uL (0.0-1.0); MONOCYTES % (AUTO) 8.4 % (1.7-9.3); NEUTROPHILS # (AUTO) 5.8 K/uL (1.8-7.7); NEUTROPHILS % (AUTO) 59.6 % (40.0-70.0); PLATELET COUNT (AUTO) 468 K/uL (130-430); RED BLOOD CELL COUNT(AUTO) 3.76 MIL/uL (4.2-6.2); RED CELL DISTRIBUTION WIDTH 15.7 % (9.0-15.0); WHITE BLOOD COUNT (AUTO) 9.7 K/uL (4.8-10.8)
[2021-05-19] MEDS: GABAPENTIN 100 MG CAPSULE PO SCH ×3 (08:17→20:54)
[2021-05-19] MEDS: MAGNESIUM OXIDE 400 MG TABLET PO SCH ×2 (08:18→20:54)
[2021-05-19] MEDS: PARoxetine HCL 20 MG TABLET PO SCH (08:18)
[2021-05-19] MEDS: CHOLECALCIFEROL (VITAMIN D3) 5,000 UNIT TABLET PO SCH ×2 (08:18→20:54)
[2021-05-19] MEDS: THIAMINE HCL 100 MG TABLET PO SCH (08:19)
[2021-05-19] MEDS: MULTIVITS,CA,MINERALS/IRON/FA 1 TABLET PO SCH ×2 (08:19→20:54)
[2021-05-19] MEDS: METOPROLOL SUCCINATE 25 MG TAB.SR.24H (TOPROL XL) PO SCH (08:25)
[2021-05-19 13:15] VITALS: BP_SYST 113
[2021-05-19] MEDS: CALCIUM CARBONATE 500 MG/ TAB.CHEW PO SCH ×3 (15:25→20:54)
[2021-05-19 18:12] VITALS: BP_SYST 117
[2021-05-19 20:00] VITALS: BP_SYST 109
[2021-05-19] MEDS: FOLIC ACID 1 MG TABLET PO SCH (20:55)
[2021-05-20 00:15] VITALS: BP_SYST 106
[2021-05-20] MEDS: traMADol HCL HCL 50 MG TABLET (ULTRAM) PO PRN ×3 (03:20→21:54)
[2021-05-20 08:36] VITALS: BP_SYST 103
[2021-05-20] MEDS: METOPROLOL SUCCINATE 25 MG TAB.SR.24H (TOPROL XL) PO SCH (09:00)
[2021-05-20] MEDS: MULTIVITS,CA,MINERALS/IRON/FA 1 TABLET PO SCH ×2 (09:18→21:39)
[2021-05-20] MEDS: LR 1,000 ML IV SCH ×2 (09:20→12:15)
[2021-05-20] MEDS: GABAPENTIN 100 MG CAPSULE PO SCH ×3 (09:21→21:39)
[2021-05-20] MEDS: CALCIUM CARBONATE 500 MG/ TAB.CHEW PO SCH ×4 (09:21→21:39)
[2021-05-20] MEDS: PARoxetine HCL 20 MG TABLET PO SCH (09:21)
[2021-05-20] MEDS: THIAMINE HCL 100 MG TABLET PO SCH (09:21)
[2021-05-20] MEDS: CHOLECALCIFEROL (VITAMIN D3) 5,000 UNIT TABLET PO SCH ×2 (09:21→21:39)
[2021-05-20] MEDS: MAGNESIUM OXIDE 400 MG TABLET PO SCH ×2 (09:21→21:39)
[2021-05-20 12:00] VITALS: BP_SYST 130
[2021-05-20 16:00] VITALS: BP_SYST 120
[2021-05-20] MEDS: FOLIC ACID 1 MG TABLET PO SCH (17:16)
[2021-05-21 01:47] VITALS: BP_SYST 120
[2021-05-21] MEDS: traMADol HCL HCL 50 MG TABLET (ULTRAM) PO PRN ×4 (04:10→20:44)
[2021-05-21] MEDS: ACETAMINOPHEN 325 MG TABLET PO PRN (05:55)
[2021-05-21 07:22] VITALS: BP_SYST 118
[2021-05-21 08:00] VITALS: BP_SYST 122
[2021-05-21] MEDS: LR 1,000 ML IV SCH (08:07)
[2021-05-21] MEDS: CHOLECALCIFEROL (VITAMIN D3) 5,000 UNIT TABLET PO SCH ×2 (08:55→20:47)
[2021-05-21] MEDS: MULTIVITS,CA,MINERALS/IRON/FA 1 TABLET PO SCH ×2 (08:55→20:41)
[2021-05-21] MEDS: CALCIUM CARBONATE 500 MG/ TAB.CHEW PO SCH ×4 (08:55→20:41)
[2021-05-21] MEDS: THIAMINE HCL 100 MG TABLET PO SCH (08:56)
[2021-05-21] MEDS: METOPROLOL SUCCINATE 25 MG TAB.SR.24H (TOPROL XL) PO SCH (08:56)
[2021-05-21] MEDS: MAGNESIUM OXIDE 400 MG TABLET PO SCH ×2 (08:56→20:41)
[2021-05-21] MEDS: PARoxetine HCL 20 MG TABLET PO SCH (08:56)
[2021-05-21] MEDS: GABAPENTIN 100 MG CAPSULE PO SCH ×3 (08:56→20:41)
[2021-05-21 12:21] VITALS: BP_SYST 121
[2021-05-21 16:12] VITALS: BP_SYST 133
[2021-05-21] MEDS: FOLIC ACID 1 MG TABLET PO SCH (17:15)
[2021-05-21 20:48] VITALS: BP_SYST 115
[2021-05-22] MEDS: traMADol HCL HCL 50 MG TABLET (ULTRAM) PO PRN ×5 (00:05→23:52)
[2021-05-22] MEDS: LR 1,000 ML IV SCH ×2 (05:11→16:25)
[2021-05-22 05:12] VITALS: BP_SYST 122
[2021-05-22 08:01] LABS: ALANINE AMINOTRANSFERASE 33 U/L (12-78); ALBUMIN 2.9 g/dL (3.4-4.8); ANION GAP 10 (5-15); ASPARTATE AMINOTRANSFERASE 16 U/L (10-37); CALCIUM 8.3 mg/dL (8.4-11.0); CHLORIDE 104 mmol/L (98-107); CREATININE 0.43 mg/dL (0.55-1.30); GLUCOSE 95 mg/dL (70-99); PHOSPHORUS 4.7 mg/dL (2.7-4.5); POTASSIUM 4.2 mmol/L (3.5-5.1); SODIUM SERUM 139 mmol/L (136-145); TOTAL BILIRUBIN < 0.1 mg/dL (0.0-1.0); UREA NITROGEN, BLOOD 12 mg/dL (8-21)
[2021-05-22 08:17] VITALS: BP_SYST 117
[2021-05-22] MEDS: CALCIUM CARBONATE 500 MG/ TAB.CHEW PO SCH ×4 (08:45→22:21)
[2021-05-22] MEDS: CHOLECALCIFEROL (VITAMIN D3) 5,000 UNIT TABLET PO SCH ×2 (08:45→22:21)
[2021-05-22] MEDS: THIAMINE HCL 100 MG TABLET PO SCH (08:45)
[2021-05-22] MEDS: PARoxetine HCL 20 MG TABLET PO SCH (08:45)
[2021-05-22] MEDS: MULTIVITS,CA,MINERALS/IRON/FA 1 TABLET PO SCH ×2 (08:45→22:21)
[2021-05-22] MEDS: MAGNESIUM OXIDE 400 MG TABLET PO SCH ×2 (08:45→22:20)
[2021-05-22] MEDS: GABAPENTIN 100 MG CAPSULE PO SCH ×3 (08:45→22:21)
[2021-05-22] MEDS: METOPROLOL SUCCINATE 25 MG TAB.SR.24H (TOPROL XL) PO SCH (08:46)
[2021-05-22 08:47] LABS: GFR AFRICAN AMERICAN 209 mL/min (>90)
[2021-05-22 08:59] LABS: BASOPHILS # (AUTO) 0.1 K/uL (0.0-0.2); BASOPHILS % (AUTO) 0.8 % (0.0-2.0); EOSINOPHILS # (AUTO) 0.2 K/uL (0.0-0.4); EOSINOPHILS % (AUTO) 2.6 % (0.0-4.0); HEMATOCRIT 30.9 % (36-48); LYMPHOCYTES # (AUTO) 2.6 K/uL (1.0-5.5); LYMPHOCYTES % (AUTO) 30.7 % (20.5-51.5); MEAN CORPUSCULAR HEMOGLOBIN 28 pg (27-31); MEAN CORPUSCULAR HGB CONC 32 % (32-36); MEAN CORPUSCULAR VOLUME 86 fL (79.0-98.0); MONOCYTES # (AUTO) 0.7 K/uL (0.0-1.0); MONOCYTES % (AUTO) 8.3 % (1.7-9.3); NEUTROPHILS # (AUTO) 4.9 K/uL (1.8-7.7); NEUTROPHILS % (AUTO) 57.6 % (40.0-70.0); PLATELET COUNT (AUTO) 408 K/uL (130-430); RED BLOOD CELL COUNT(AUTO) 3.59 MIL/uL (4.2-6.2); RED CELL DISTRIBUTION WIDTH 15.6 % (9.0-15.0); WHITE BLOOD COUNT (AUTO) 8.6 K/uL (4.8-10.8)
[2021-05-22 16:15] VITALS: BP_SYST 123
[2021-05-22] MEDS: FOLIC ACID 1 MG TABLET PO SCH (18:30)
[2021-05-23 00:05] VITALS: BP_SYST 109
[2021-05-23] MEDS: traMADol HCL HCL 50 MG TABLET (ULTRAM) PO PRN ×2 (05:16→09:02)
[2021-05-23 08:00] VITALS: BP_SYST 135
[2021-05-23] MEDS: THIAMINE HCL 100 MG TABLET PO SCH (08:51)
[2021-05-23] MEDS: CALCIUM CARBONATE 500 MG/ TAB.CHEW PO SCH ×4 (08:52→20:55)
[2021-05-23] MEDS: METOPROLOL SUCCINATE 25 MG TAB.SR.24H (TOPROL XL) PO SCH (08:52)
[2021-05-23] MEDS: CHOLECALCIFEROL (VITAMIN D3) 5,000 UNIT TABLET PO SCH ×2 (08:52→20:55)
[2021-05-23] MEDS: PARoxetine HCL 20 MG TABLET PO SCH (08:53)
[2021-05-23] MEDS: GABAPENTIN 100 MG CAPSULE PO SCH ×3 (08:53→20:56)
[2021-05-23] MEDS: MAGNESIUM OXIDE 400 MG TABLET PO SCH ×2 (08:53→20:56)
[2021-05-23] MEDS: MULTIVITS,CA,MINERALS/IRON/FA 1 TABLET PO SCH ×2 (08:53→20:56)
[2021-05-23 12:00] VITALS: BP_SYST 110
[2021-05-23 16:00] VITALS: BP_SYST 116
[2021-05-23] MEDS: FOLIC ACID 1 MG TABLET PO SCH (18:00)
[2021-05-23 20:00] VITALS: BP_SYST 117
[2021-05-24] MEDS: traMADol HCL HCL 50 MG TABLET (ULTRAM) PO PRN ×4 (03:50→17:42)
[2021-05-24 08:00] VITALS: BP_SYST 123
[2021-05-24] MEDS: THIAMINE HCL 100 MG TABLET PO SCH (08:08)
[2021-05-24] MEDS: PARoxetine HCL 20 MG TABLET PO SCH (08:08)
[2021-05-24] MEDS: GABAPENTIN 100 MG CAPSULE PO SCH ×3 (08:08→21:31)
[2021-05-24] MEDS: CALCIUM CARBONATE 500 MG/ TAB.CHEW PO SCH ×4 (08:08→21:31)
[2021-05-24] MEDS: METOPROLOL SUCCINATE 25 MG TAB.SR.24H (TOPROL XL) PO SCH (08:09)
[2021-05-24] MEDS: CHOLECALCIFEROL (VITAMIN D3) 5,000 UNIT TABLET PO SCH ×2 (08:09→21:31)
[2021-05-24] MEDS: MAGNESIUM OXIDE 400 MG TABLET PO SCH ×2 (08:09→21:31)
[2021-05-24] MEDS: MULTIVITS,CA,MINERALS/IRON/FA 1 TABLET PO SCH ×2 (08:09→21:31)
[2021-05-24 12:00] VITALS: BP_SYST 117
[2021-05-24 16:00] VITALS: BP_SYST 108
[2021-05-24] MEDS: LR 1,000 ML IV SCH (16:07)
[2021-05-24] MEDS: FOLIC ACID 1 MG TABLET PO SCH (17:41)
[2021-05-24 20:00] VITALS: BP_SYST 110
[2021-05-25] VITALS: BP_SYST 122
[2021-05-25] MEDS: traMADol HCL HCL 50 MG TABLET (ULTRAM) PO PRN ×5 (03:00→22:45)
[2021-05-25 06:59] LABS: BASOPHILS # (AUTO) 0.1 K/uL (0.0-0.2); BASOPHILS % (AUTO) 1.1 % (0.0-2.0); EOSINOPHILS # (AUTO) 0.2 K/uL (0.0-0.4); EOSINOPHILS % (AUTO) 2.5 % (0.0-4.0); HEMATOCRIT 30.6 % (36-48); HEMOGLOBIN 9.9 g/dL (12.0-16.0); LYMPHOCYTES # (AUTO) 2.5 K/uL (1.0-5.5); MEAN CORPUSCULAR HEMOGLOBIN 28 pg (27-31); MEAN CORPUSCULAR HGB CONC 32 % (32-36); MEAN CORPUSCULAR VOLUME 86 fL (79.0-98.0); MONOCYTES # (AUTO) 0.7 K/uL (0.0-1.0); MONOCYTES % (AUTO) 8.3 % (1.7-9.3); NEUTROPHILS # (AUTO) 5.4 K/uL (1.8-7.7); NEUTROPHILS % (AUTO) 60.1 % (40.0-70.0); RED BLOOD CELL COUNT(AUTO) 3.55 MIL/uL (4.2-6.2); RED CELL DISTRIBUTION WIDTH 15.5 % (9.0-15.0); WHITE BLOOD COUNT (AUTO) 8.9 K/uL (4.8-10.8)
[2021-05-25 07:02] LABS: PLATELET COUNT (AUTO) 272 K/uL (130-430)
[2021-05-25 07:07] LABS: PHOSPHORUS 4.6 mg/dL (2.7-4.5)
[2021-05-25 08:00] VITALS: BP_SYST 122
[2021-05-25] MEDS: CALCIUM CARBONATE 500 MG/ TAB.CHEW PO SCH ×4 (09:44→20:20)
[2021-05-25] MEDS: MAGNESIUM OXIDE 400 MG TABLET PO SCH ×2 (09:44→20:20)
[2021-05-25] MEDS: CHOLECALCIFEROL (VITAMIN D3) 5,000 UNIT TABLET PO SCH ×2 (09:44→20:20)
[2021-05-25] MEDS: GABAPENTIN 100 MG CAPSULE PO SCH ×3 (09:44→20:20)
[2021-05-25] MEDS: MULTIVITS,CA,MINERALS/IRON/FA 1 TABLET PO SCH ×2 (09:44→20:21)
[2021-05-25] MEDS: METOPROLOL SUCCINATE 25 MG TAB.SR.24H (TOPROL XL) PO SCH (09:45)
[2021-05-25] MEDS: PARoxetine HCL 20 MG TABLET PO SCH (09:45)
[2021-05-25] MEDS: THIAMINE HCL 100 MG TABLET PO SCH (09:45)
[2021-05-25] MEDS: LR 1,000 ML IV SCH ×2 (12:07→22:44)
[2021-05-25] MEDS ORDERED: CALC500T63 PO (14:07)
[2021-05-25] MEDS ORDERED: MAGN400T10 PO (14:07)
[2021-05-25] MEDS ORDERED: PARO-41 PO (14:07)
[2021-05-25] MEDS ORDERED: METO-540 PO (14:07)
[2021-05-25 16:00] VITALS: BP_SYST 120
[2021-05-25 16:13] VITALS: BP_SYST 122
[2021-05-25] MEDS: FOLIC ACID 1 MG TABLET PO SCH (18:12)
[2021-05-25 20:22] VITALS: BP_SYST 104
[2021-05-26 00:16] VITALS: BP_SYST 114
[2021-05-26] MEDS: traMADol HCL HCL 50 MG TABLET (ULTRAM) PO PRN (04:40)
[2021-05-26 08:00] VITALS: BP_SYST 115
[2021-05-26] MEDS: LR 1,000 ML IV SCH (08:07)
[2021-05-26] MEDS: CHOLECALCIFEROL (VITAMIN D3) 5,000 UNIT TABLET PO SCH (08:08)
[2021-05-26] MEDS: PARoxetine HCL 20 MG TABLET PO SCH (08:09)
[2021-05-26] MEDS: MULTIVITS,CA,MINERALS/IRON/FA 1 TABLET PO SCH (08:09)
[2021-05-26] MEDS: MAGNESIUM OXIDE 400 MG TABLET PO SCH (08:09)
[2021-05-26] MEDS: METOPROLOL SUCCINATE 25 MG TAB.SR.24H (TOPROL XL) PO SCH (08:09)
[2021-05-26] MEDS: GABAPENTIN 100 MG CAPSULE PO SCH (08:10)
[2021-05-26] MEDS: CALCIUM CARBONATE 500 MG/ TAB.CHEW PO SCH (08:10)
[2021-05-26] MEDS: THIAMINE HCL 100 MG TABLET PO SCH (08:10)
== END 2021-05-26 11:44 | DRG 74 ==
LOC: SED 08:10 → STU 11:04 → SMU 05-09 13:59
PROVIDERS: ADMIT Internal Medicine; ATTEND Internal Medicine
PROC: 05HY33Z Insertion of Infusion Device into Upper Vein, Percutaneous Approach (ICD-10-PCS; principal; 2021-05-03)
PROC: B54MZZA Ultrasonography of Right Upper Extremity Veins, Guidance (ICD-10-PCS; 2021-05-03)
DX: G62.1 Alcoholic polyneuropathy (principal); F33.1 Major depressive disorder, recurrent, moderate; G82.20 Paraplegia, unspecified; E87.6 Hypokalemia; F41.9 Anxiety disorder, unspecified; G62.9 Polyneuropathy, unspecified; E83.39 Other disorders of phosphorus metabolism; Z20.822 Contact with and (suspected) exposure to COVID-19; M21.372 Foot drop, left foot; M21.371 Foot drop, right foot; E53.8 Deficiency of other specified B group vitamins; Z86.16 Personal history of COVID-19; Z87.891 Personal history of nicotine dependence
CPT/HCPCS: 36415; 71045; 76700-TC; 80048; 80053; 80074; 81000; 82085; 82140; 82306; 82550; 82553; 82607; 82962; 82977; 83036; 83540; 83550; 83605; 83655; 83735; 83970; 84100; 84484; 84703; 85025; 85044; 85610-TC; 85730-TC; 86140; 87040; 87081; 87086; 93005; 96361; 96374; 97110-GO; 97110-GP; 97112-GP; 97116-GP; 97163-GP; 97530-GO; 97530-GP; 97535-GO; 99285; G0378; G0480; G0481; J0696; J2060; J2405; J3411; J3475; J3490; J7050; J7060